=== PATIENT | female | born 1935 | race Caucasian/White ===

== ENCOUNTER 2017-06-08 12:16 | Outpatient (RCR) | payer MEDICARE, OTHER, SELFPAY ==
[2017-06-08 13:07] LABS: International Normalized Ratio 2.3; Prothrombin Time (Protime)PT. 24.7 SECONDS (11.7-14.9)
== END 2017-06-08 12:30 | disposition home or self-care (01) ==
LOC: LAB 12:16
PROVIDERS: Family Provider Family Medicine; PCP Family Medicine; Visit Provider Internal Medicine Cardiovascular Disease
DX: I48.0 Paroxysmal atrial fibrillation (principal)
CPT/HCPCS: 36415; 85610

== ENCOUNTER 2017-06-27 12:38 | Outpatient (RCR) | payer MEDICARE, OTHER, SELFPAY ==
[2017-05-03 14:04] VITALS: BP 140/70
[2017-06-27 13:58] LABS: International Normalized Ratio 2.4; Prothrombin Time (Protime)PT. 25.1 SECONDS (11.7-14.9)
== END 2017-06-27 13:49 ==
LOC: LAB 12:38
PROVIDERS: Family Provider Family Medicine; PCP Family Medicine; Visit Provider Internal Medicine Cardiovascular Disease
DX: I48.0 Paroxysmal atrial fibrillation (principal)
CPT/HCPCS: 36415; 85610

== ENCOUNTER 2017-07-30 13:50 | Emergency (ER) | payer MEDICARE, OTHER, SELFPAY ==
[2017-07-30 13:51] VITALS: BP 159/83; PULSE 89; RESP 17; TEMP 37.2; O2SAT 97; BMI 28.5
--- NOTE | 2017-07-30 14:03 | NURSING ---
NO LW OR POA
--- NOTE | 2017-07-30 14:05 | EKG12_ITS ---
Test Reason : COLD SX Blood Pressure : / mmHG Vent. Rate : 072 BPM Atrial Rate : 075 BPM P-R Int : 000 ms QRS Dur : 140 ms QT Int : 434 ms P-R-T Axes : 000 -59 108 degrees QTc Int : 475 ms Atrial fibrillation with V pacing Left axis deviation Left ventricular hypertrophy with QRS widening T wave abnormality, consider lateral ischemia Abnormal ECG Confirmed by STEW MONTEMAYOR, POORNIMA ([id number]), marketing editor YUDI LEE ([id number]) on 08/01/2017 3:05:30 PM Referred By: ADAL Confirmed By:POORNIMA MATHIAS MD
--- NOTE | 2017-07-30 14:06 | RAD_ITS ---
STUDY: X-RAY CHEST REASON FOR EXAM: Female, 82 years old. Cough and congestion TECHNIQUE: Single view of the chest was obtained COMPARISON: August 01, 2015 chest radiograph. FINDINGS: No lung consolidation, pleural effusion or pneumothorax. Mild enlargement of the hilar shadows noted. There are likely calcified granulomas in the left upper lobe however small nodule in the left upper lobe suspected which appears more conspicuous than previous examination. Please consider chest CT on a nonemergent basis. Cardiac size is slightly prominent. Pacemaker device is noted. Left lower lobe retrocardiac region ill-defined opacities also seen RAD/Chest 1 View (Portable) IMPRESSION: No lung consolidation or pneumothorax. Mild cardiomegaly. Ill-defined nodular density in the left upper lobe nodule visualized on the previous examination. Please consider chest CT on a nonemergent basis Electronically Signed: Walter Muse, at 14:25 EST Tel , Service support ,
[2017-07-30] MEDS: Ipratropium/Albuterol Sulfate 3 ML AMPUL.NEB INHALATION (14:18)
[2017-07-30 14:19] VITALS: PULSE 74; RESP 23
[2017-07-30 14:30] LABS: Absolute Lymphocyte Count 0.74 X10^3/ul (0.83-4.51); Basophil# 0.01 X10^3/uL; Basophil% 0.2 % (0-1); Eosinophil# 0.01 X10^3/uL; Eosinophils% 0.2 % (0-5); Hematocrit 39.7 % (37-47); Lymphocyte # 0.74 X10^3/ul (4.0); Lymphocyte % 13.8 % (19-41); Mean Corp Hgb Conc 32.7 g/gl (32-36); Mean Corpuscular Hgb 31.3 pg (27.0-32.0); Mean Corpuscular Volume 95.4 fL (81-99); Mean Platelet Vol. 10.5 fl (6.2-12.0); Monocyte# 0.63 X10^3/uL; Monocyte% 11.7 % (0-10); Neutrophil # 3.99 X10^3/uL (2.7-7.7); Neutrophil % 74.1 % (47-70); POSITIVE COUNT NO; POSITIVE DIFFERENTIAL NO; POSITIVE MORPHOLOGY NO; Platelet Count 106 K/mm3 (150-450); RBC Distribution Width CV 13.2 % (11.6-14.6); RBC Distribution Width SD 45.4 fl (35.1-43.9); Red Blood Count 4.16 M/mm3 (4.2-5.4); White Blood Count 5.4 K/mm3 (4.4-11.0)
--- NOTE | 2017-07-30 14:32 | ED.DCSUM_ITS ---
- ER Visit Summary Date of Service: 07/30/17 Chief Complaint: [] cold symptoms for about a week History of Present Illness: The patient is a 82 F [] reports that a chest cold for about a week she is otherwise very healthy, history of heart disease, cardiomyopathy history implantable defibrillator CAD, cardiac status is stable on Coumadin INR is been 3 no chest pain no fever but a harsh dry cough and runny nose she was seen in urgent care center went to her drugstore she seemed tired and fatigued paramedics were called and she was brought in she indicates she is just debilitated from the harsh coughing she has been able to eat and drink her bowel bladder habits been normal she can shake the cough she did have a flu vaccination she has no history of COPD DVT or PE Physical Examination: [] Total signs are within normal range her pulse ox is 97 % on room air she is afebrile her nose is quite congested she has a harsh cough her neck is supple her lungs rhonchi in all areas the heart tones are unremarkable the abdomen soft nontender upper lower extremities unremarkable neurologically is awake moving all 4 Test Results: [] Emergency Department Course and Treatment: [] Therapy screening labs flu swab Studies are generally unremarkable except her flu swab is positive for influenza B chest x-ray shows nothing acute except a nonspecific abnormality that was present before per radiology to recommend nonemergent CT for further delineation no change in that abnormality see that report Much better she is taking p.o. fluids she understands all the above she wants to go home, again she indicates her cardiac status has been stable her defibrillator did not fire she has had no chest pain or any cardiac symptomatology Be instructed to use Proventil inhaler Flonase, Mucinex, Tylenol No. 3 at bedtime and follow with her doctor and return for change in symptoms Treatment Plan: [] Disposition: [] Stable home Impression: [] URI with harsh cough, influenza B positive history of cardiomyopathy and cardiac defibrillator This note was generated with [employer] dictation software. It may contain incorrect words, spelling, and punctuation that were not noted in review of the chart prior to signing ED Disposition - Plan for ED Patient: Chief Complaint: Cold Sx Referrals: Olivier Singh MD [Primary Care Provider] -
[2017-07-30 14:43] LABS: Anion Gap 7 (5-15); BUN 25 mg/dL (7-18); BUN/Creat Ratio 21.9 RATIO (10-20); Calcium,Total 8.3 mg/dL (8.5-10.1); Chloride 104 mmol/L (98-107); Creatinine, Serum 1.14 mg/dL (0.55-1.02); EST Glomerular Filtration Rate 49 mL/min (>60); Est Glom Filt Rate - Afr Amer 59 mL/min (>60); Glucose 105 mg/dL (74-106); Potassium 4.1 mmol/L (3.5-5.1); Sodium Level 139 mmol/L (136-145)
[2017-07-30 15:00] LABS: International Normalized Ratio 2.2; Prothrombin Time (Protime)PT. 24.2 SECONDS (11.7-14.9)
--- NOTE | 2017-07-30 15:14 | ED.RN ---
LAB REPORTED POSITIVE FLU B
[2017-07-30 15:52] VITALS: BP 142/72; PULSE 76; RESP 24; O2SAT 94
--- NOTE | 2017-07-30 16:12 | ED.DEP ---
ED Disposition - Plan for ED Patient: Chief Complaint: Cold Sx Instructions: ED Flu Prescriptions: Albuterol Inhaler [Ventolin Hfa] 1 - 2 puff INHALATION Q4H PRN PRN #1 inhaler PRN Reason: Wheezing Acetaminophen/Codeine #3 [Tylenol #3 Tablet] 1 tab PO QHS #7 tab Fluticasone Propionate [Flonase Allergy Relief] 9.9 ml NS BID #1 spray.susp Guaifenesin [Mucinex] 1,200 mg PO BID #14 tbmp.12hr Referrals: Olivier Singh MD [Primary Care Provider] -
[2017-07-30 16:45] VITALS: BP 141/79; PULSE 77; RESP 22; O2SAT 95
== END 2017-07-30 16:46 | disposition home or self-care (01) ==
LOC: ED 14:26
PROVIDERS: Emergency Provider Emergency Medicine; Family Provider Family Medicine; PCP Family Medicine
DX: J11.1 Influenza due to unidentified influenza virus with other respiratory manifestations (principal); J06.9 Acute upper respiratory infection, unspecified; R05 Cough; I42.9 Cardiomyopathy, unspecified; I25.10 Atherosclerotic heart disease of native coronary artery without angina pectoris; I50.9 Heart failure, unspecified; I10 Essential (primary) hypertension; E78.00 Pure hypercholesterolemia, unspecified; I48.91 Unspecified atrial fibrillation; Z95.810 Presence of automatic (implantable) cardiac defibrillator; Z79.01 Long term (current) use of anticoagulants; Z79.899 Other long term (current) drug therapy
CPT/HCPCS: 71045; 80048; 83880; 84484; 85025; 85610; 87804; 93005; 94640; 99285; A4216

== ENCOUNTER 2017-08-12 11:20 | Outpatient (RCR) | payer MEDICARE, OTHER, SELFPAY ==
[2017-08-04 14:25] LABS: International Normalized Ratio 3.2
== END 2017-08-12 12:00 | disposition home or self-care (01) ==
LOC: LAB 11:20
PROVIDERS: Family Provider Family Medicine; PCP Family Medicine; Visit Provider Internal Medicine Cardiovascular Disease
DX: I48.0 Paroxysmal atrial fibrillation (principal)
CPT/HCPCS: 36415; 85610

== ENCOUNTER 2017-09-13 09:07 | Outpatient (RCR) | payer MEDICARE, OTHER, SELFPAY ==
[2017-09-02 12:42] LABS: International Normalized Ratio 3.2; Prothrombin Time (Protime)PT. 32.8 SECONDS (11.7-14.9)
[2017-09-13 09:44] LABS: International Normalized Ratio 2.7; Prothrombin Time (Protime)PT. 29.2 SECONDS (11.7-14.9)
== END 2017-09-13 10:00 | disposition home or self-care (01) ==
LOC: LAB 09:07
PROVIDERS: Family Provider Family Medicine; PCP Family Medicine; Visit Provider Internal Medicine Cardiovascular Disease
DX: I48.0 Paroxysmal atrial fibrillation (principal)
CPT/HCPCS: 36415; 85610

== ENCOUNTER → 2017-11-01 11:44 | Outpatient (CLI) | payer MEDICARE, OTHER, SELFPAY ==
[2017-11-01 12:31] LABS: International Normalized Ratio 2.1; Prothrombin Time (Protime)PT. 23.2 SECONDS (11.7-14.9)
[2017-11-01 13:15] LABS: AST(SGOT) 41 U/L (15-37); Alanine Aminotransfer ALT/SGPT 63 U/L (13-56); Albumin, Serum 3.4 g/dL (3.2-5.0); Alkaline Phosphatase 119 U/L (45-117); Bilirubin, Direct 0.16 mg/dL (0.00-0.30); Globulin 3.9 g/dL (2.2-4.2); Protein, Total 7.3 g/dL (6.4-8.2); T4 Free Direct 1.41 ng/dL (0.76-1.46); Thyroid Stim Hormone (TSH) 2.02 uIU/mL (0.358-3.74)
== END ==
PROVIDERS: Family Provider Family Medicine; PCP Family Medicine; Visit Provider Physician Assistant Medical
DX: I48.91 Unspecified atrial fibrillation (principal); Z79.899 Other long term (current) drug therapy
CPT/HCPCS: 36415; 80076; 84439; 84443; 85610

== ENCOUNTER 2017-11-22 11:08 | Outpatient (RCR) | payer MEDICARE, OTHER, SELFPAY ==
[2017-11-22 11:32] LABS: Prothrombin Time (Protime)PT. 22.4 SECONDS (11.7-14.9)
== END 2017-11-22 12:00 | disposition home or self-care (01) ==
LOC: LAB 11:08
PROVIDERS: Family Provider Family Medicine; PCP Family Medicine; Visit Provider Internal Medicine Cardiovascular Disease
DX: I48.0 Paroxysmal atrial fibrillation (principal); Z79.01 Long term (current) use of anticoagulants
CPT/HCPCS: 36415; 85610

== ENCOUNTER 2017-12-20 11:59 | Outpatient (RCR) | payer MEDICARE, OTHER, SELFPAY ==
[2017-12-20 13:14] LABS: Prothrombin Time (Protime)PT. 22.3 SECONDS (11.7-14.9)
== END 2017-12-20 13:00 | disposition home or self-care (01) ==
LOC: LAB 11:59
PROVIDERS: Family Provider Family Medicine; PCP Family Medicine; Visit Provider Internal Medicine Cardiovascular Disease
DX: I48.0 Paroxysmal atrial fibrillation (principal); Z79.01 Long term (current) use of anticoagulants
CPT/HCPCS: 36415; 85610

== ENCOUNTER 2018-01-18 11:54 | Outpatient (RCR) | payer MEDICARE, OTHER, SELFPAY ==
[2018-01-18 12:57] LABS: International Normalized Ratio 2.2; Prothrombin Time (Protime)PT. 24.7 SECONDS (11.7-14.9)
== END 2018-01-18 13:00 | disposition home or self-care (01) ==
LOC: LAB 11:54
PROVIDERS: Family Provider Family Medicine; PCP Family Medicine; Visit Provider Internal Medicine Cardiovascular Disease
DX: I48.0 Paroxysmal atrial fibrillation (principal); Z79.01 Long term (current) use of anticoagulants
CPT/HCPCS: 36415; 85610

== ENCOUNTER 2018-02-15 12:30 | Outpatient (RCR) | payer MEDICARE, OTHER, SELFPAY ==
[2018-02-15 12:54] LABS: International Normalized Ratio 2.2; Prothrombin Time (Protime)PT. 24.7 SECONDS (11.7-14.9)
== END 2018-02-15 14:00 | disposition home or self-care (01) ==
LOC: LAB 12:30
PROVIDERS: Family Provider Family Medicine; PCP Family Medicine; Visit Provider Internal Medicine Cardiovascular Disease
DX: I48.0 Paroxysmal atrial fibrillation (principal); Z79.01 Long term (current) use of anticoagulants
CPT/HCPCS: 36415; 85610

== ENCOUNTER 2018-03-14 10:55 | Outpatient (RCR) | payer MEDICARE, OTHER, SELFPAY ==
[2018-03-14 11:38] LABS: International Normalized Ratio 2.2; Prothrombin Time (Protime)PT. 24.8 SECONDS (11.7-14.9)
== END 2018-03-14 12:00 | disposition home or self-care (01) ==
LOC: LAB 10:55
PROVIDERS: Family Provider Family Medicine; PCP Family Medicine; Referring Provider Internal Medicine Cardiovascular Disease; Visit Provider Internal Medicine Cardiovascular Disease
DX: I48.0 Paroxysmal atrial fibrillation (principal); Z79.01 Long term (current) use of anticoagulants
CPT/HCPCS: 36415; 85610

== ENCOUNTER 2018-04-11 10:50 | Outpatient (RCR) | payer MEDICARE, OTHER, SELFPAY ==
[2018-04-11 11:30] LABS: International Normalized Ratio 1.7; Prothrombin Time (Protime)PT. 19.8 SECONDS (11.7-14.9)
== END 2018-04-24 10:52 | disposition home or self-care (01) ==
LOC: LAB 10:50
PROVIDERS: Family Provider Family Medicine; PCP Family Medicine; Referring Provider Internal Medicine Cardiovascular Disease; Visit Provider Internal Medicine Cardiovascular Disease
DX: I48.0 Paroxysmal atrial fibrillation (principal); Z79.01 Long term (current) use of anticoagulants
CPT/HCPCS: 36415; 85610

== ENCOUNTER 2018-06-08 13:28 | Outpatient (RCR) | payer MEDICARE, OTHER, SELFPAY ==
[2018-05-26 11:17] LABS: International Normalized Ratio 1.7
[2018-06-08 14:48] LABS: International Normalized Ratio 2.3; Prothrombin Time (Protime)PT. 25.1 SECONDS (11.7-14.9)
== END 2018-06-08 14:00 | disposition home or self-care (01) ==
LOC: LAB 13:28
PROVIDERS: Family Provider Family Medicine; PCP Family Medicine; Referring Provider Internal Medicine Cardiovascular Disease; Visit Provider Internal Medicine Cardiovascular Disease
DX: I48.0 Paroxysmal atrial fibrillation (principal); Z79.01 Long term (current) use of anticoagulants
CPT/HCPCS: 36415; 85610

== ENCOUNTER 2018-07-17 10:24 | Outpatient (RCR) | payer MEDICARE, OTHER, SELFPAY ==
[2018-07-06 16:48] LABS: International Normalized Ratio 1.6; Prothrombin Time (Protime)PT. 19.1 SECONDS (11.7-14.9)
[2018-07-17 10:53] LABS: International Normalized Ratio 2.1; Prothrombin Time (Protime)PT. 23.6 SECONDS (11.7-14.9)
== END 2018-07-20 14:33 | disposition home or self-care (01) ==
LOC: LAB 10:24
PROVIDERS: Family Provider Family Medicine; PCP Family Medicine; Referring Provider Internal Medicine Cardiovascular Disease; Visit Provider Internal Medicine Cardiovascular Disease
DX: I48.0 Paroxysmal atrial fibrillation (principal); Z79.01 Long term (current) use of anticoagulants
CPT/HCPCS: 36415; 85610

== ENCOUNTER 2018-08-14 12:22 | Outpatient (RCR) | payer MEDICARE, OTHER, SELFPAY ==
[2018-08-08 11:05] VITALS: BMI 28.0
[2018-08-14 12:58] LABS: International Normalized Ratio 2.1; Prothrombin Time (Protime)PT. 23.8 SECONDS (11.7-14.9)
== END 2018-08-14 13:22 | disposition home or self-care (01) ==
LOC: LAB 12:22
PROVIDERS: Family Provider Family Medicine; PCP Family Medicine; Referring Provider Internal Medicine Cardiovascular Disease; Visit Provider Internal Medicine Cardiovascular Disease
DX: I48.0 Paroxysmal atrial fibrillation (principal); Z79.01 Long term (current) use of anticoagulants
CPT/HCPCS: 36415; 85610

== ENCOUNTER → 2018-08-31 | Outpatient (CLI) | payer MEDICARE, OTHER, SELFPAY ==
[2018-08-08 11:05] VITALS: BMI 28.0
--- NOTE | 2018-08-31 10:36 | ECHOCS_ITS ---
Reason For Study: ATRIAL FIB-FLUTTER Procedure This was a 2D Doppler, Color Flow transthoracic echocardiogram. Exam performed in department. Left Ventricle Severely dilated left ventricle. Moderate concentric left ventricular hypertrophy. The estimated ejection fraction is 15 %. Severe segmental systolic dysfunction (see wall motion). Stage 2 diastolic dysfunction. Septal [place] : Dyskinetic. Anterior [place] : Akinetic. Posterior-Basal: Normal. Lateral-Basal: Normal. The rest of the wall segments are hypokinetic. Right Ventricle Normal RV size. ICD or pacer leads identified within the right ventricle. Normal systolic function. Atria The left atrium is mildly enlarged. Normal right atrium. Mitral Valve Bileaflet diffuse mitral valve thickening. Mild-Moderate (1-2+) eccentric mitral valve insufficiency. Tricuspid Valve Normal tricuspid valve. Mild to moderate (1-2+) tricuspid valve insufficiency. Pulmonary artery systolic pressure is 44 mmHg. Mild pulmonary hypertension. Aortic Valve Trisinus/trileaflet aortic valve. Mild (1+) aortic valve insufficiency. Pulmonic Valve Normal pulmonic valve. Great Vessels Normal aortic root. The pulmonary artery is normal size. Normal inferior vena cava. Pericardium/Pleural Small pericardial effusion. Medication 22 gauge I.V. with prn adaptor inserted into right arm. Diluted definity 4.5ml given slow IV push to enhance endocardial definition. MMode/2D Measurements & Calculations LVIDd: 7.5 cm IVSd: 1.5 cm Ao root diam: 3.4 cm LVIDs: 6.4 cm LVPWd: 1.5 cm RVDd: 3.4 cm FS: 15.5 % LAV(MOD-bp): 70.5 ml LVAd ap4: 66.2 cm2 SV(MOD-sp4): 78.6 ml LAV(MOD-bp) Indexed: 36.9 ml/m2 EDV(MOD-sp4): 339.1 ml LAV(MOD-sp2): 75.6 ml EDV(sp4-el): 360.9 ml LAV(MOD-sp4): 61.4 ml LVAs ap4: 57.2 cm2 ESV(MOD-sp4): 260.5 ml ESV(sp4-el): 271.9 ml EF(MOD-sp4): 23.2 % EF(sp4-el): 24.7 % SV(sp4-el): 89.1 ml LA A4 area: 21.0 cm2 LA dimension(2D): 4.5 cm RA A4 area: 13.8 cm2 Time Measurements MV dec time: 0.16 sec Doppler Measurements & Calculations MV E max micah: 71.6 cm/sec Lat Peak E' Micah: 3.2 cm/sec Med Peak E' Micah: 2.7 cm/sec MV A max micah: 94.6 cm/sec E/E' lat: 22.2 E/E' med: 27.0 MV E/A: 0.76 Ao V2 max: 147.8 cm/sec AI max micah: 392.4 cm/sec LV V1 max: 125.8 cm/sec Ao max P.7 mmHg AI max P.7 mmHg LV V1 max P.3 mmHg AI dec slope: 276.0 cm/sec2 AI P1/2t: 416.4 msec PA V2 max: 76.2 cm/sec PI end-d micah: 100.4 cm/sec TR max micah: 318.4 cm/sec TR max P.6 mmHg Interpretation Summary Severely dilated left ventricle. The estimated ejection fraction is 15 %. Severe segmental systolic dysfunction (see wall motion). Mild-Moderate (1-2+) eccentric mitral valve insufficiency. Pulmonary artery systolic pressure is 44 mmHg. Mild pulmonary hypertension. Stage 2 diastolic dysfunction. Contrast injection was performed. Ordering Physician: Ramírez Emerson Referring Physician: CITLALI SHABAZZ Performed By: Darby Myers RDCS
== END | disposition home or self-care (01) ==
LOC: CVS 10:35
PROVIDERS: Family Provider Family Medicine; PCP Family Medicine; Referring Provider Internal Medicine Cardiovascular Disease; Visit Provider Internal Medicine Cardiovascular Disease
DX: I25.10 Atherosclerotic heart disease of native coronary artery without angina pectoris (principal)
CPT/HCPCS: 93306; Q9957; A4216; C8929

== ENCOUNTER 2018-09-11 11:50 | Outpatient (RCR) | payer MEDICARE, OTHER, SELFPAY ==
[2018-08-08 11:05] VITALS: BMI 28.0
[2018-09-11 12:49] LABS: International Normalized Ratio 1.9; Prothrombin Time (Protime)PT. 21.5 SECONDS (11.7-14.9)
== END 2018-09-19 16:00 | disposition home or self-care (01) ==
LOC: LAB 11:50
PROVIDERS: Family Provider Family Medicine; PCP Family Medicine; Referring Provider Internal Medicine Cardiovascular Disease; Visit Provider Internal Medicine Cardiovascular Disease
DX: I48.0 Paroxysmal atrial fibrillation (principal); Z79.01 Long term (current) use of anticoagulants
CPT/HCPCS: 36415; 85610

== ENCOUNTER 2018-10-17 10:57 | Outpatient (RCR) | payer MEDICARE, OTHER, SELFPAY ==
[2018-08-08 11:05] VITALS: BMI 28.0
[2018-09-25 13:46] LABS: International Normalized Ratio 1.7; Prothrombin Time (Protime)PT. 19.8 SECONDS (11.7-14.9)
[2018-10-02 15:20] LABS: Prothrombin Time (Protime)PT. 22.2 SECONDS (11.7-14.9)
[2018-10-17 11:55] LABS: International Normalized Ratio 2.1; Prothrombin Time (Protime)PT. 23.8 SECONDS (11.7-14.9)
== END 2018-10-17 11:57 | disposition home or self-care (01) ==
LOC: LAB 10:57
PROVIDERS: Family Provider Family Medicine; PCP Family Medicine; Referring Provider Internal Medicine Cardiovascular Disease; Visit Provider Internal Medicine Cardiovascular Disease
DX: I48.0 Paroxysmal atrial fibrillation (principal); Z79.01 Long term (current) use of anticoagulants
CPT/HCPCS: 36415; 85610

== ENCOUNTER 2018-11-07 12:09 | Outpatient (RCR) | payer MEDICARE, OTHER, SELFPAY ==
[2018-08-08 11:05] VITALS: BMI 28.0
[2018-11-07 13:47] LABS: Prothrombin Time (Protime)PT. 26.4 SECONDS (11.7-14.9)
[2018-11-07 13:48] LABS: International Normalized Ratio 2.4
== END 2018-11-07 13:00 | disposition home or self-care (01) ==
LOC: LAB 12:09
PROVIDERS: Family Provider Family Medicine; PCP Family Medicine; Referring Provider Internal Medicine Cardiovascular Disease; Visit Provider Internal Medicine Cardiovascular Disease
DX: I48.0 Paroxysmal atrial fibrillation (principal); Z79.01 Long term (current) use of anticoagulants
CPT/HCPCS: 36415; 85610

== ENCOUNTER 2018-12-04 13:58 | Outpatient (RCR) | payer MEDICARE, OTHER, SELFPAY ==
[2018-08-08 11:05] VITALS: BMI 28.0
[2018-12-04 14:37] LABS: International Normalized Ratio 2.2; Prothrombin Time (Protime)PT. 24.8 SECONDS (11.7-14.9)
== END 2018-12-20 15:59 | disposition home or self-care (01) ==
LOC: LAB 13:58
PROVIDERS: Family Provider Family Medicine; PCP Family Medicine; Referring Provider Internal Medicine Cardiovascular Disease; Visit Provider Internal Medicine Cardiovascular Disease
DX: I48.0 Paroxysmal atrial fibrillation (principal); Z79.01 Long term (current) use of anticoagulants
CPT/HCPCS: 36415; 85610

== ENCOUNTER 2019-01-01 11:10 | Outpatient (RCR) | payer MEDICARE, OTHER, SELFPAY ==
[2018-08-08 11:05] VITALS: BMI 28.0
[2019-01-01 12:30] LABS: International Normalized Ratio 2.9; Prothrombin Time (Protime)PT. 30.6 SECONDS (11.7-14.9)
== END 2019-01-01 18:00 | disposition home or self-care (01) ==
LOC: LAB 11:10
PROVIDERS: Family Provider Family Medicine; PCP Family Medicine; Referring Provider Internal Medicine Cardiovascular Disease; Visit Provider Internal Medicine Cardiovascular Disease
DX: I48.0 Paroxysmal atrial fibrillation (principal); Z79.01 Long term (current) use of anticoagulants
CPT/HCPCS: 36415; 85610

== ENCOUNTER 2019-01-31 10:52 | Outpatient (RCR) | payer MEDICARE, OTHER, SELFPAY ==
[2018-08-08 11:05] VITALS: BMI 28.0
[2019-01-31 11:57] LABS: International Normalized Ratio 2.2; Prothrombin Time (Protime)PT. 24.2 SECONDS (11.7-14.9)
== END 2019-01-31 12:00 | disposition home or self-care (01) ==
LOC: LAB 10:52
PROVIDERS: Family Provider Family Medicine; PCP Family Medicine; Referring Provider Internal Medicine Cardiovascular Disease; Visit Provider Internal Medicine Cardiovascular Disease
DX: I48.0 Paroxysmal atrial fibrillation (principal); Z79.01 Long term (current) use of anticoagulants
CPT/HCPCS: 36415; 85610

== ENCOUNTER 2019-03-01 11:55 | Outpatient (RCR) | payer MEDICARE, OTHER, SELFPAY ==
[2018-08-08 11:05] VITALS: BMI 28.0
[2019-03-01 13:25] LABS: International Normalized Ratio 2.3
== END 2019-03-01 18:00 | disposition home or self-care (01) ==
LOC: LAB 11:55
PROVIDERS: Family Provider Family Medicine; PCP Family Medicine; Referring Provider Internal Medicine Cardiovascular Disease; Visit Provider Internal Medicine Cardiovascular Disease
DX: I48.0 Paroxysmal atrial fibrillation (principal); Z79.01 Long term (current) use of anticoagulants
CPT/HCPCS: 36415; 85610

== ENCOUNTER 2019-03-28 09:10 | Outpatient (RCR) | payer MEDICARE, OTHER, SELFPAY ==
[2018-08-08 11:05] VITALS: BMI 28.0
[2019-03-28 09:53] LABS: Prothrombin Time (Protime)PT. 31.4 SECONDS (11.7-14.9)
== END 2019-03-28 18:00 | disposition home or self-care (01) ==
LOC: LAB 09:10
PROVIDERS: Family Provider Family Medicine; PCP Family Medicine; Referring Provider Internal Medicine Cardiovascular Disease; Visit Provider Internal Medicine Cardiovascular Disease
DX: I48.0 Paroxysmal atrial fibrillation (principal); Z79.01 Long term (current) use of anticoagulants
CPT/HCPCS: 36415; 85610

== ENCOUNTER → 2019-04-24 10:43 | Outpatient (CLI) | payer MEDICARE, OTHER, SELFPAY ==
[2019-04-24 08:41] VITALS: BMI 28.1
--- NOTE | 2019-04-24 10:47 | RAD_ITS ---
STUDY: X-RAY CHEST REASON FOR EXAM: Female, 83 years old. Myocardial infarction. TECHNIQUE: Frontal and lateral views of the chest. COMPARISON: 07/30/2017. FINDINGS: The lungs are clear and expanded. There is no demonstrated pleural abnormality. Normal size heart. Pacemaker is seen with leads terminating in the right atrium and right ventricle. Normal mediastinum and marin. Normal visualized pulmonary arteries. Normal visualized aortic arch and descending thoracic aorta. Normal visualized thoracic spine. Normal visualized ribs, clavicles, and shoulders. There is no demonstrated abnormality of the visualized soft tissue structures of the upper abdomen. RAD/Chest PA and Lateral IMPRESSION: No acute chest disease. Electronically Signed: Ryne López MD at 20:11 EST , Service support ,
== END ==
PROVIDERS: Family Provider Family Medicine; PCP Family Medicine; Referring Provider Internal Medicine Cardiovascular Disease; Visit Provider Internal Medicine Cardiovascular Disease
DX: I48.0 Paroxysmal atrial fibrillation (principal)
CPT/HCPCS: 71046

== ENCOUNTER 2019-05-09 14:31 | Outpatient (RCR) | payer MEDICARE, OTHER, SELFPAY ==
[2018-08-08 11:05] VITALS: BMI 28.0
[2019-04-24 08:41] VITALS: BMI 28.1
[2019-04-24 12:19] LABS: International Normalized Ratio 3.2; Prothrombin Time (Protime)PT. 33.3 SECONDS (11.7-14.9)
[2019-04-24 13:04] LABS: AST(SGOT) 26 U/L (15-37); Alanine Aminotransfer ALT/SGPT 39 U/L (13-56); Albumin, Serum 3.3 g/dL (3.2-5.0); Alkaline Phosphatase 109 U/L (45-117); Bilirubin, Direct 0.14 mg/dL (0.00-0.30); Globulin 3.7 g/dL (2.2-4.2); T4 Free Direct 1.12 ng/dL (0.76-1.46); Thyroid Stim Hormone (TSH) 2.23 uIU/mL (0.358-3.74)
[2019-05-09 15:41] LABS: International Normalized Ratio 2.8; Prothrombin Time (Protime)PT. 29.3 SECONDS (11.7-14.9)
== END 2019-05-09 18:00 | disposition home or self-care (01) ==
LOC: LAB 14:31
PROVIDERS: Family Provider Family Medicine; PCP Family Medicine; Referring Provider Internal Medicine Cardiovascular Disease; Visit Provider Internal Medicine Cardiovascular Disease
DX: E78.00 Pure hypercholesterolemia, unspecified (principal); I48.0 Paroxysmal atrial fibrillation; Z79.01 Long term (current) use of anticoagulants
CPT/HCPCS: 36415; 71046; 80076; 84439; 84443; 85610

== ENCOUNTER 2019-06-06 10:50 | Outpatient (RCR) | payer MEDICARE, OTHER, SELFPAY ==
[2019-04-24 08:41] VITALS: BMI 28.1
[2019-06-06 11:47] LABS: International Normalized Ratio 2.2; Prothrombin Time (Protime)PT. 24.3 SECONDS (11.7-14.9)
== END 2019-06-06 18:00 | disposition home or self-care (01) ==
LOC: LAB 10:50
PROVIDERS: Family Provider Family Medicine; PCP Family Medicine; Referring Provider Internal Medicine Cardiovascular Disease; Visit Provider Internal Medicine Cardiovascular Disease
DX: I48.0 Paroxysmal atrial fibrillation (principal); Z79.01 Long term (current) use of anticoagulants
CPT/HCPCS: 36415; 85610

== ENCOUNTER 2019-06-28 13:10 | Outpatient (RCR) | payer MEDICARE, OTHER, SELFPAY ==
[2019-04-24 08:41] VITALS: BMI 28.1
[2019-06-28 14:17] LABS: International Normalized Ratio 2.4; Prothrombin Time (Protime)PT. 26.5 SECONDS (11.7-14.9)
== END 2019-06-28 18:00 | disposition home or self-care (01) ==
LOC: LAB 13:10
PROVIDERS: Family Provider Family Medicine; PCP Family Medicine; Referring Provider Internal Medicine Cardiovascular Disease; Visit Provider Internal Medicine Cardiovascular Disease
DX: I48.0 Paroxysmal atrial fibrillation (principal); Z79.01 Long term (current) use of anticoagulants
CPT/HCPCS: 36415; 85610

== ENCOUNTER 2019-08-16 13:24 | Outpatient (RCR) | payer MEDICARE, OTHER, SELFPAY ==
[2019-04-24 08:41] VITALS: BMI 28.1
[2019-07-27 14:34] LABS: International Normalized Ratio 2.5; Prothrombin Time (Protime)PT. 27.1 SECONDS (11.7-14.9)
[2019-08-01 14:21] LABS: Prothrombin Time (Protime)PT. 36.4 SECONDS (11.7-14.9)
[2019-08-01 14:25] LABS: International Normalized Ratio 3.6
[2019-08-09 14:34] LABS: International Normalized Ratio 2.4; Prothrombin Time (Protime)PT. 26.1 SECONDS (11.7-14.9)
[2019-08-16 14:36] LABS: International Normalized Ratio 3.2
== END 2019-08-16 18:00 | disposition home or self-care (01) ==
LOC: LAB 13:24
PROVIDERS: Family Provider Family Medicine; PCP Family Medicine; Referring Provider Internal Medicine Cardiovascular Disease; Visit Provider Internal Medicine Cardiovascular Disease
DX: I48.0 Paroxysmal atrial fibrillation (principal); Z79.01 Long term (current) use of anticoagulants
CPT/HCPCS: 36415; 85610

== ENCOUNTER 2019-09-19 11:53 | Outpatient (RCR) | payer MEDICARE, OTHER, SELFPAY ==
[2019-04-24 08:41] VITALS: BMI 28.1
[2019-08-29 12:14] LABS: International Normalized Ratio 2.9; Prothrombin Time (Protime)PT. 30.2 SECONDS (11.7-14.9)
[2019-09-19 13:13] LABS: International Normalized Ratio 2.9; Prothrombin Time (Protime)PT. 29.8 SECONDS (11.7-14.9)
== END 2019-09-20 18:00 | disposition home or self-care (01) ==
LOC: LAB 11:53
PROVIDERS: Family Provider Family Medicine; PCP Family Medicine; Referring Provider Internal Medicine Cardiovascular Disease; Visit Provider Internal Medicine Cardiovascular Disease
DX: I48.0 Paroxysmal atrial fibrillation (principal); Z79.01 Long term (current) use of anticoagulants
CPT/HCPCS: 36415; 85610

== ENCOUNTER 2019-10-17 10:18 | Outpatient (RCR) | payer MEDICARE, OTHER, SELFPAY ==
[2019-04-24 08:41] VITALS: BMI 28.1
[2019-10-17 16:16] LABS: International Normalized Ratio 2.3; Prothrombin Time (Protime)PT. 25.1 SECONDS (11.7-14.9)
== END 2019-10-17 18:00 | disposition home or self-care (01) ==
LOC: LAB 10:18
PROVIDERS: Family Provider Family Medicine; PCP Family Medicine; Referring Provider Internal Medicine Cardiovascular Disease; Visit Provider Internal Medicine Cardiovascular Disease
DX: I48.0 Paroxysmal atrial fibrillation (principal); Z79.01 Long term (current) use of anticoagulants
CPT/HCPCS: 36415; 85610

== ENCOUNTER → 2019-10-24 | Outpatient (CLI) | payer MEDICARE, OTHER, SELFPAY ==
[2019-04-24 08:41] VITALS: BMI 28.1
[2019-10-24 11:26] LABS: AST(SGOT) 27 U/L (15-37); Alanine Aminotransfer ALT/SGPT 43 U/L (13-56); Albumin, Serum 3.3 g/dL (3.2-5.0); Alkaline Phosphatase 109 U/L (45-117); Bilirubin, Direct 0.16 mg/dL (0.00-0.30); Cholesterol 159 mg/dL (200); Globulin 4.2 g/dL (2.2-4.2); High Density Lipoprotein 48 mg/dL; Protein, Total 7.5 g/dL (6.4-8.2); Thyroid Stim Hormone (TSH) 2.37 uIU/mL (0.358-3.74); Triglycerides 97 mg/dL; Very Low Density Lipoprotein 19 mg/dL (5-40)
== END | disposition home or self-care (01) ==
LOC: LAB 09:08
PROVIDERS: PCP Family Medicine; Referring Provider Internal Medicine Cardiovascular Disease; Visit Provider Internal Medicine Cardiovascular Disease
DX: E78.00 Pure hypercholesterolemia, unspecified (principal); I48.0 Paroxysmal atrial fibrillation
CPT/HCPCS: 36415; 80061; 80076; 84443

== ENCOUNTER 2019-11-15 12:31 | Outpatient (RCR) | payer MEDICARE, OTHER, SELFPAY ==
[2019-04-24 08:41] VITALS: BMI 28.1
[2019-11-15 13:42] LABS: International Normalized Ratio 1.8; Prothrombin Time (Protime)PT. 20.2 SECONDS (11.7-14.9)
== END 2019-11-15 18:00 | disposition home or self-care (01) ==
LOC: LAB 12:31
PROVIDERS: Family Provider Family Medicine; PCP Family Medicine; Referring Provider Internal Medicine Cardiovascular Disease; Visit Provider Internal Medicine Cardiovascular Disease
DX: I48.0 Paroxysmal atrial fibrillation (principal); Z79.01 Long term (current) use of anticoagulants
CPT/HCPCS: 36415; 85610

== ENCOUNTER 2019-11-29 12:15 | Outpatient (RCR) | payer MEDICARE, OTHER, SELFPAY ==
[2019-04-24 08:41] VITALS: BMI 28.1
[2019-11-29 13:13] LABS: International Normalized Ratio 2.1; Prothrombin Time (Protime)PT. 22.6 SECONDS (11.7-14.9)
== END 2019-11-29 18:00 | disposition home or self-care (01) ==
LOC: LAB 12:15
PROVIDERS: Family Provider Family Medicine; PCP Family Medicine; Referring Provider Internal Medicine Cardiovascular Disease; Visit Provider Internal Medicine Cardiovascular Disease
DX: I48.0 Paroxysmal atrial fibrillation (principal); Z79.01 Long term (current) use of anticoagulants
CPT/HCPCS: 36415; 85610

== ENCOUNTER 2020-01-03 10:17 | Outpatient (RCR) | payer MEDICARE, OTHER, SELFPAY ==
[2019-11-29 12:50] VITALS: BMI 28.1
[2020-01-03 11:23] LABS: International Normalized Ratio 2.9; Prothrombin Time (Protime)PT. 30.1 SECONDS (11.7-14.9)
== END 2020-01-21 18:00 | disposition home or self-care (01) ==
LOC: LAB 10:17
PROVIDERS: Family Provider Family Medicine; PCP Family Medicine; Referring Provider Internal Medicine Cardiovascular Disease; Visit Provider Internal Medicine Cardiovascular Disease
DX: I48.0 Paroxysmal atrial fibrillation (principal); Z79.01 Long term (current) use of anticoagulants
CPT/HCPCS: 36415; 85610

== ENCOUNTER 2020-01-31 11:25 | Outpatient (RCR) | payer MEDICARE, OTHER, SELFPAY ==
[2019-11-29 12:50] VITALS: BMI 28.1
[2020-01-31 12:52] LABS: Prothrombin Time (Protime)PT. 30.6 SECONDS (11.7-14.9)
== END 2020-01-31 18:00 | disposition home or self-care (01) ==
LOC: LAB 11:25
PROVIDERS: Family Provider Family Medicine; PCP Family Medicine; Referring Provider Internal Medicine Cardiovascular Disease; Visit Provider Internal Medicine Cardiovascular Disease
DX: I48.0 Paroxysmal atrial fibrillation (principal); Z79.01 Long term (current) use of anticoagulants
CPT/HCPCS: 36415; 85610

== ENCOUNTER 2020-02-29 11:52 | Outpatient (RCR) | payer MEDICARE, OTHER, SELFPAY ==
[2019-11-29 12:50] VITALS: BMI 28.1
[2020-02-29 12:26] LABS: International Normalized Ratio 2.9; Prothrombin Time (Protime)PT. 30.3 SECONDS (11.7-14.9)
== END 2020-02-29 18:00 | disposition home or self-care (01) ==
LOC: LAB 11:52
PROVIDERS: Family Provider Family Medicine; PCP Family Medicine; Referring Provider Internal Medicine Cardiovascular Disease; Visit Provider Internal Medicine Cardiovascular Disease
DX: I48.0 Paroxysmal atrial fibrillation (principal); Z79.01 Long term (current) use of anticoagulants
CPT/HCPCS: 36415; 85610

== ENCOUNTER 2020-04-24 09:16 | Outpatient (RCR) | payer MEDICARE, OTHER, SELFPAY ==
[2019-11-29 12:50] VITALS: BMI 28.1
[2020-04-24 10:39] LABS: International Normalized Ratio 2.9; Prothrombin Time (Protime)PT. 29.8 SECONDS (11.7-14.9)
[2020-04-24 11:01] LABS: AST(SGOT) 29 U/L (15-37); Alanine Aminotransfer ALT/SGPT 47 U/L (13-56); Albumin, Serum 3.4 g/dL (3.2-5.0); Alkaline Phosphatase 112 U/L (45-117); Bilirubin, Direct 0.17 mg/dL (0.00-0.30); Cholesterol 127 mg/dL (200); Globulin 3.7 g/dL (2.2-4.2); High Density Lipoprotein 51 mg/dL; Protein, Total 7.1 g/dL (6.4-8.2); Triglycerides 69 mg/dL; Very Low Density Lipoprotein 14 mg/dL (5-40)
== END 2020-04-24 18:00 | disposition home or self-care (01) ==
LOC: LAB 09:16
PROVIDERS: Family Provider Family Medicine; PCP Family Medicine; Referring Provider Internal Medicine Cardiovascular Disease; Visit Provider Internal Medicine Cardiovascular Disease
DX: I48.0 Paroxysmal atrial fibrillation (principal); Z79.01 Long term (current) use of anticoagulants; E78.00 Pure hypercholesterolemia, unspecified
CPT/HCPCS: 36415; 80061; 80076; 85610

== ENCOUNTER 2020-05-26 12:39 | Outpatient (RCR) | payer MEDICARE, OTHER, SELFPAY ==
[2019-11-29 12:50] VITALS: BMI 28.1
[2020-05-26 13:34] LABS: International Normalized Ratio 2.3; Prothrombin Time (Protime)PT. 25.1 SECONDS (11.7-14.9)
== END 2020-05-26 18:00 | disposition home or self-care (01) ==
LOC: LAB 12:39
PROVIDERS: Family Provider Family Medicine; PCP Family Medicine; Referring Provider Internal Medicine Cardiovascular Disease; Visit Provider Internal Medicine Cardiovascular Disease
DX: I48.0 Paroxysmal atrial fibrillation (principal); Z79.01 Long term (current) use of anticoagulants
CPT/HCPCS: 36415; 85610

== ENCOUNTER 2020-06-26 11:44 | Outpatient (RCR) | payer MEDICARE, OTHER, SELFPAY ==
[2019-11-29 12:50] VITALS: BMI 28.1
[2020-06-26 13:38] LABS: International Normalized Ratio 2.4; Prothrombin Time (Protime)PT. 25.5 SECONDS (11.7-14.9)
== END 2020-06-26 18:00 | disposition home or self-care (01) ==
LOC: LAB 11:44
PROVIDERS: Family Provider Family Medicine; PCP Family Medicine; Referring Provider Internal Medicine Cardiovascular Disease; Visit Provider Internal Medicine Cardiovascular Disease
DX: I48.0 Paroxysmal atrial fibrillation (principal); Z79.01 Long term (current) use of anticoagulants
CPT/HCPCS: 36415; 85610

== ENCOUNTER 2020-07-30 11:23 | Outpatient (RCR) | payer MEDICARE, OTHER, SELFPAY ==
[2019-11-29 12:50] VITALS: BMI 28.1
[2020-07-23 10:59] LABS: International Normalized Ratio 2.6; Prothrombin Time (Protime)PT. 27.6 SECONDS (11.7-14.9)
[2020-07-30 12:09] LABS: International Normalized Ratio 2.5; Prothrombin Time (Protime)PT. 26.3 SECONDS (11.7-14.9)
== END 2020-07-30 18:00 | disposition home or self-care (01) ==
LOC: LAB 11:23
PROVIDERS: Family Provider Family Medicine; PCP Family Medicine; Referring Provider Internal Medicine Cardiovascular Disease; Visit Provider Internal Medicine Cardiovascular Disease
DX: Z79.01 Long term (current) use of anticoagulants (principal); I48.0 Paroxysmal atrial fibrillation
CPT/HCPCS: 36415; 85610

== ENCOUNTER → 2020-08-13 10:59 | Outpatient (CLI) | payer MEDICARE, OTHER, SELFPAY ==
[2020-08-01 09:50] VITALS: BMI 28.0
--- NOTE | 2020-08-13 11:00 | ECHOD_ITS ---
Reason For Study: CAD Procedure This was a 2D Doppler, Color Flow transthoracic echocardiogram. Exam performed in department. Left Ventricle Severely dilated left ventricle. Mid cavitary false tendon noted. The estimated ejection fraction is 15 %. There are regional wall motion abnormalities as specified. Apical wall motion abnormality may reflect pacemaker activation. [place] : Aneurysmal. Mid-Anterior : Akinetic. Anterio-Basal: Hypokinetic. Lateral-Basal: Normal. Posterior-Basal: Normal. Infero-Basal: Hypokinetic. Basal inferoseptal: Hypokinetic. Mid-Inferior: Akinetic. Mid-Lateral : Hypokinetic. Right Ventricle Normal RV size. ICD or pacer leads identified within the right ventricle. Normal systolic function. Atria The left atrium is mildly enlarged. Normal right atrium. Mitral Valve Normal mitral valve. Moderate (2+) mitral valve insufficiency. Tricuspid Valve Normal tricuspid valve. Mild to moderate (1-2+) tricuspid valve insufficiency. Pulmonary artery systolic pressure is 54 mmHg. Moderate pulmonary hypertension. Aortic Valve Trisinus/trileaflet aortic valve. Mild (1+) aortic valve insufficiency. Pulmonic Valve Normal pulmonic valve. Great Vessels Normal aortic root. The pulmonary artery is normal size. Normal inferior vena cava. Pericardium/Pleural No pericardial effusion. MMode/2D Measurements & Calculations LVIDd: 7.0 cm IVSd: 1.0 cm Ao root diam: 2.9 cm LVIDs: 5.3 cm LVPWd: 1.0 cm RVDd: 2.8 cm FS: 24.4 % LAV(MOD-bp): 60.9 ml LA A4 area: 21.8 cm2 LA dimension(2D): 4.7 cm LAV(MOD-bp) Indexed: 31.6 ml/m2 LAV(MOD-sp2): 50.9 ml LAV(MOD-sp4): 69.3 ml RA A4 area: 12.4 cm2 Time Measurements MV dec time: 0.14 sec Doppler Measurements & Calculations MV E max micah: 74.7 cm/sec Lat Peak E' Micah: 6.1 cm/sec Med Peak E' Micah: 3.0 cm/sec MV A max micah: 94.5 cm/sec E/E' lat: 12.3 E/E' med: 25.2 MV E/A: 0.79 Ao V2 max: 127.0 cm/sec AI max micah: 386.7 cm/sec LV V1 max: 80.4 cm/sec Ao max P.5 mmHg AI max P.0 mmHg LV V1 max P.6 mmHg AI dec slope: 269.1 cm/sec2 AI P1/2t: 420.9 msec PA V2 max: 94.7 cm/sec PI end-d micah: 110.2 cm/sec TR max micah: 348.2 cm/sec TR max P.5 mmHg Interpretation Summary Severely dilated left ventricle. The estimated ejection fraction is 15 %. Normal RV size. Pulmonary artery systolic pressure is 54 mmHg. Moderate pulmonary hypertension. The global longitudinal strain is severely abnormal. The global longitudinal strain = -4.0% (abnormal). Compared to previous study, the left ventricular systolic function is the same.. Ordering Physician: Ramírez Emerson Referring Physician: CITLALI SHABAZZ Performed By: Anabella Zamarripa RDCS, RVT
== END ==
PROVIDERS: PCP Family Medicine; Referring Provider Internal Medicine Cardiovascular Disease; Visit Provider Internal Medicine Cardiovascular Disease
DX: I25.10 Atherosclerotic heart disease of native coronary artery without angina pectoris (principal)
CPT/HCPCS: 93306

== ENCOUNTER 2020-09-02 11:26 | Outpatient (RCR) | payer MEDICARE, OTHER, SELFPAY ==
[2020-08-01 09:50] VITALS: BMI 28.0
[2020-09-02 13:17] LABS: International Normalized Ratio 2.3; Prothrombin Time (Protime)PT. 24.1 SECONDS (11.7-14.9)
== END 2020-09-02 18:00 | disposition home or self-care (01) ==
LOC: LAB 11:26
PROVIDERS: Family Provider Family Medicine; PCP Family Medicine; Referring Provider Internal Medicine Cardiovascular Disease; Visit Provider Internal Medicine Cardiovascular Disease
DX: I48.0 Paroxysmal atrial fibrillation (principal); Z79.01 Long term (current) use of anticoagulants
CPT/HCPCS: 36415; 85610

== ENCOUNTER 2020-10-15 10:18 | Outpatient (RCR) | payer MEDICARE, OTHER, SELFPAY ==
[2020-08-01 09:50] VITALS: BMI 28.0
[2020-10-15 11:59] LABS: International Normalized Ratio 3.5; Prothrombin Time (Protime)PT. 34.4 SECONDS (11.7-14.9)
== END 2020-10-15 18:00 | disposition home or self-care (01) ==
LOC: LAB 10:18
PROVIDERS: Family Provider Family Medicine; PCP Family Medicine; Referring Provider Internal Medicine Cardiovascular Disease; Visit Provider Internal Medicine Cardiovascular Disease
DX: I48.0 Paroxysmal atrial fibrillation (principal); Z79.01 Long term (current) use of anticoagulants
CPT/HCPCS: 36415; 85610

== ENCOUNTER 2020-11-03 12:51 | Outpatient (RCR) | payer MEDICARE, OTHER, SELFPAY ==
[2020-08-01 09:50] VITALS: BMI 28.0
[2020-10-29 09:26] LABS: International Normalized Ratio 4.1; Prothrombin Time (Protime)PT. 38.6 SECONDS (11.7-14.9)
[2020-10-29 09:51] LABS: AST(SGOT) 27 U/L (15-37); Alanine Aminotransfer ALT/SGPT 38 U/L (13-56); Albumin, Serum 3.2 g/dL (3.2-5.0); Alkaline Phosphatase 110 U/L (45-117); Bilirubin, Direct 0.25 mg/dL (0.00-0.30); Cholesterol 121 mg/dL (200); Globulin 3.7 g/dL (2.2-4.2); High Density Lipoprotein 46 mg/dL; Protein, Total 6.9 g/dL (6.4-8.2); Triglycerides 70 mg/dL; Very Low Density Lipoprotein 14 mg/dL (5-40)
[2020-11-03 13:25] LABS: International Normalized Ratio 2.4; Prothrombin Time (Protime)PT. 25.5 SECONDS (11.7-14.9)
== END 2020-11-03 18:00 | disposition home or self-care (01) ==
LOC: LAB 12:51
PROVIDERS: Nurse Practitioner Family; Family Provider Family Medicine; PCP Family Medicine; Referring Provider Internal Medicine Cardiovascular Disease; Visit Provider Internal Medicine Cardiovascular Disease
DX: I48.0 Paroxysmal atrial fibrillation (principal); Z79.01 Long term (current) use of anticoagulants; E78.00 Pure hypercholesterolemia, unspecified; E78.5 Hyperlipidemia, unspecified
CPT/HCPCS: 36415; 80061; 80076; 85610

== ENCOUNTER 2020-11-25 11:00 | Outpatient (RCR) | payer MEDICARE, OTHER, SELFPAY ==
[2020-08-01 09:50] VITALS: BMI 28.0
[2020-11-25 11:58] LABS: International Normalized Ratio 2.4; Prothrombin Time (Protime)PT. 25.3 SECONDS (11.7-14.9)
== END 2020-11-25 18:00 | disposition home or self-care (01) ==
LOC: LAB 11:00
PROVIDERS: Family Provider Family Medicine; PCP Family Medicine; Referring Provider Internal Medicine Cardiovascular Disease; Visit Provider Internal Medicine Cardiovascular Disease
DX: I48.0 Paroxysmal atrial fibrillation (principal); Z79.01 Long term (current) use of anticoagulants
CPT/HCPCS: 36415; 85610

== ENCOUNTER 2021-01-09 15:04 | Outpatient (RCR) | payer MEDICARE, OTHER, SELFPAY ==
[2020-08-01 09:50] VITALS: BMI 28.0
[2020-12-24 12:48] LABS: International Normalized Ratio 3.4; Prothrombin Time (Protime)PT. 33.2 SECONDS (11.7-14.9)
[2021-01-09 17:07] LABS: International Normalized Ratio 1.9; Prothrombin Time (Protime)PT. 21.2 SECONDS (11.7-14.9)
== END 2021-01-09 18:00 | disposition home or self-care (01) ==
LOC: LAB 15:04
PROVIDERS: Family Provider Family Medicine; PCP Family Medicine; Referring Provider Internal Medicine Cardiovascular Disease; Visit Provider Internal Medicine Cardiovascular Disease
DX: I48.0 Paroxysmal atrial fibrillation (principal); Z79.01 Long term (current) use of anticoagulants
CPT/HCPCS: 36415; 85610

== ENCOUNTER 2021-02-06 09:08 | Outpatient (RCR) | payer MEDICARE, OTHER, SELFPAY ==
[2021-01-20 19:58] VITALS: BMI 28.0
[2021-02-06 09:49] LABS: International Normalized Ratio 2.1; Prothrombin Time (Protime)PT. 22.6 SECONDS (11.7-14.9)
== END 2021-02-06 18:00 | disposition home or self-care (01) ==
LOC: LAB 09:08
PROVIDERS: Family Provider Family Medicine; PCP Family Medicine; Referring Provider Internal Medicine Cardiovascular Disease; Visit Provider Internal Medicine Cardiovascular Disease
DX: I48.0 Paroxysmal atrial fibrillation (principal); Z79.01 Long term (current) use of anticoagulants
CPT/HCPCS: 36415; 85610

== ENCOUNTER 2021-03-04 13:06 | Outpatient (RCR) | payer MEDICARE, OTHER, SELFPAY ==
[2021-02-19 20:16] VITALS: BMI 28.0
[2021-03-04 14:43] LABS: Prothrombin Time (Protime)PT. 21.7 SECONDS (11.7-14.9)
== END 2021-03-22 03:30 | disposition home or self-care (01) ==
LOC: LAB 13:06
PROVIDERS: Family Provider Family Medicine; PCP Family Medicine; Referring Provider Internal Medicine Cardiovascular Disease; Visit Provider Internal Medicine Cardiovascular Disease
DX: I48.0 Paroxysmal atrial fibrillation (principal); Z79.01 Long term (current) use of anticoagulants
CPT/HCPCS: 36415; 85610

== ENCOUNTER 2021-04-03 08:19 | Outpatient (RCR) | payer MEDICARE, OTHER, SELFPAY ==
[2021-03-22 03:30] VITALS: BMI 28.0
[2021-04-03 09:15] LABS: International Normalized Ratio 2.1; Prothrombin Time (Protime)PT. 22.7 SECONDS (11.7-14.9)
== END 2021-04-21 18:00 | disposition home or self-care (01) ==
LOC: LAB 08:19
PROVIDERS: Family Provider Family Medicine; PCP Family Medicine; Referring Provider Internal Medicine Cardiovascular Disease; Visit Provider Internal Medicine Cardiovascular Disease
DX: I48.0 Paroxysmal atrial fibrillation (principal); Z79.01 Long term (current) use of anticoagulants
CPT/HCPCS: 36415; 85610

== ENCOUNTER 2021-05-01 09:52 | Outpatient (RCR) | payer MEDICARE, OTHER, SELFPAY ==
[2021-04-22 02:11] VITALS: BMI 28.0
[2021-05-01 10:48] LABS: Prothrombin Time (Protime)PT. 22.3 SECONDS (11.7-14.9)
[2021-05-01 11:13] LABS: AST(SGOT) 33 U/L (15-37); Alanine Aminotransfer ALT/SGPT 51 U/L (13-56); Albumin, Serum 3.4 g/dL (3.2-5.0); Alkaline Phosphatase 90 U/L (45-117); Bilirubin, Direct 0.18 mg/dL (0.00-0.30); Cholesterol 121 mg/dL (200); Globulin 3.7 g/dL (2.2-4.2); High Density Lipoprotein 52 mg/dL; Protein, Total 7.1 g/dL (6.4-8.2); Triglycerides 64 mg/dL; Very Low Density Lipoprotein 13 mg/dL (5-40)
== END 2021-05-23 18:00 | disposition home or self-care (01) ==
LOC: LAB 09:52
PROVIDERS: Family Provider Family Medicine; PCP Family Medicine; Referring Provider Internal Medicine Cardiovascular Disease; Visit Provider Internal Medicine Cardiovascular Disease
DX: I48.0 Paroxysmal atrial fibrillation (principal); Z79.01 Long term (current) use of anticoagulants; E78.00 Pure hypercholesterolemia, unspecified
CPT/HCPCS: 36415; 80061; 80076; 85610

== ENCOUNTER 2021-06-19 11:11 | Outpatient (RCR) | payer MEDICARE, OTHER, SELFPAY ==
[2021-05-24 03:44] VITALS: BMI 28.0
[2021-06-05 12:54] LABS: International Normalized Ratio 1.9; Prothrombin Time (Protime)PT. 20.7 SECONDS (11.7-14.9)
[2021-06-19 12:07] LABS: International Normalized Ratio 1.9; Prothrombin Time (Protime)PT. 20.9 SECONDS (11.7-14.9)
== END 2021-06-22 18:00 | disposition home or self-care (01) ==
LOC: LAB 11:11
PROVIDERS: Family Provider Family Medicine; PCP Family Medicine; Referring Provider Internal Medicine Cardiovascular Disease; Visit Provider Internal Medicine Cardiovascular Disease
DX: I48.0 Paroxysmal atrial fibrillation (principal); Z79.01 Long term (current) use of anticoagulants
CPT/HCPCS: 36415; 85610

== ENCOUNTER 2021-07-04 11:05 | Outpatient (RCR) | payer MEDICARE, OTHER, SELFPAY ==
[2021-06-22 22:46] VITALS: BMI 28.0
[2021-07-04 11:31] LABS: International Normalized Ratio 2.1; Prothrombin Time (Protime)PT. 22.5 SECONDS (11.7-14.9)
== END 2021-07-04 18:00 | disposition home or self-care (01) ==
LOC: LAB 11:05
PROVIDERS: Family Provider Family Medicine; PCP Family Medicine; Referring Provider Internal Medicine Cardiovascular Disease; Visit Provider Internal Medicine Cardiovascular Disease
DX: I48.0 Paroxysmal atrial fibrillation (principal); Z79.01 Long term (current) use of anticoagulants
CPT/HCPCS: 36415; 85610

== ENCOUNTER → 2021-09-24 | Outpatient (CLI) | payer MEDICARE, OTHER, SELFPAY ==
[2021-09-24 15:11] LABS: Prothrombin Time (Protime)PT. 21.9 SECONDS (11.7-14.9)
[2021-09-24 15:41] LABS: Thyroid Stim Hormone (TSH) 2.07 uIU/mL (0.358-3.74)
== END | disposition home or self-care (01) ==
LOC: LAB 14:43
PROVIDERS: PCP Family Medicine; Referring Provider Internal Medicine Cardiovascular Disease; Visit Provider Internal Medicine Cardiovascular Disease
DX: I48.0 Paroxysmal atrial fibrillation (principal); Z79.01 Long term (current) use of anticoagulants
CPT/HCPCS: 36415; 84443; 85610

== ENCOUNTER 2021-10-06 07:52 | Outpatient (RCR) | payer MEDICARE, OTHER, SELFPAY ==
[2021-07-21 09:29] VITALS: BMI 28.0
[2021-09-21 09:15] LABS: International Normalized Ratio 1.9; Prothrombin Time (Protime)PT. 21.1 SECONDS (11.7-14.9)
[2021-10-06 08:40] LABS: International Normalized Ratio 2.2; Prothrombin Time (Protime)PT. 23.8 SECONDS (11.7-14.9)
[2021-10-06 08:59] LABS: AST(SGOT) 31 U/L (15-37); Alanine Aminotransfer ALT/SGPT 44 U/L (13-56); Albumin, Serum 3.3 g/dL (3.2-5.0); Alkaline Phosphatase 78 U/L (45-117); Bilirubin, Direct 0.18 mg/dL (0.00-0.30); Cholesterol 123 mg/dL (200); Globulin 3.5 g/dL (2.2-4.2); High Density Lipoprotein 47 mg/dL; Protein, Total 6.8 g/dL (6.4-8.2); Triglycerides 73 mg/dL; Very Low Density Lipoprotein 15 mg/dL (5-40)
== END 2021-10-06 18:00 | disposition home or self-care (01) ==
LOC: LAB 07:52
PROVIDERS: Family Provider Family Medicine; PCP Family Medicine; Referring Provider Internal Medicine Cardiovascular Disease; Visit Provider Internal Medicine Cardiovascular Disease
DX: I48.0 Paroxysmal atrial fibrillation (principal); Z79.01 Long term (current) use of anticoagulants; E78.00 Pure hypercholesterolemia, unspecified
CPT/HCPCS: 36415; 80061; 80076; 85610

== ENCOUNTER 2021-10-19 19:22 | Emergency (ER) | payer MEDICARE, OTHER, SELFPAY ==
[2021-10-19 19:23] VITALS: PULSE 64; TEMP 36.5; O2SAT 98; BMI 26.9
[2021-10-19 19:27] VITALS: BP 162/71; PULSE 64; RESP 15; TEMP 36.5; O2SAT 98
[2021-10-19] MEDS: HYDROcodone Bitartrate/Apap 5/325 Tablet PO (19:50)
--- NOTE | 2021-10-19 20:00 | RAD_ITS ---
STUDY: XR Shoulder Min 2 Views REASON FOR EXAM: Female, 86 years old. fall TECHNIQUE: XR Shoulder Min 2 Views LEFT COMPARISON: None. FINDINGS: Normal glenohumeral articulation. There is degenerative arthrosis of the acromioclavicular joint without inferior osseous spur formation. Normal acromion. There is a left sided pacemaker battery pack. Left humeral head and neck fracture. The soft tissue structures are unremarkable. Normal visualized pulmonary apex. RAD/Shoulder min 2 Views IMPRESSION: Left humeral head and neck fracture. Electronically Signed: Rony Lopez MD at 20:19 EDT ,
--- NOTE | 2021-10-19 20:54 | EDS_ITS ---
HPI HPI - Fall History of Present Illness Chief Complaint: Fall Narrative Narrative: Patient sustained mechanical fall at home she got tangled while trying to reach for wood on her deck. She did not hit her head, she has no neck pain or any other injury her only injury is left shoulder region. She comes in via EMS and is hard for her to ambulate afterwards. [facility] Medical History (Updated 10/19/21 @ 20:[address] 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 (congestive heart failure) Diastolic dysfunction Dizziness and giddiness Elevated liver enzymes Essential (primary) hypertension GI bleed High risk medication use HLD (hyperlipidemia) Ischemic cardiomyopathy FDC current use of anticoagulant Monomorphic ventricular tachycardia Non-rheumatic tricuspid valve insufficiency Nonrheumatic mitral (valve) insufficiency Old anterior wall myocardial infarction Paroxysmal atrial fibrillation Secondary pulmonary arterial hypertension Shortness of breath Home Medications multivitamin 1 ea PO DAILY 04/28/15 [History Last Taken Unknown] vit C 250 mg-vit E 90 mg-zinc 40 mg-copper 1 [id number] capsule See Rx Instructions PO DAILY 05/03/17 [History Last Taken Unknown] furosemide 40 mg tablet 40 mg PO QDAY #90 tab 12/26/20 [Rx Last Taken Unknown] amiodarone 200 mg tablet 100 mg PO .COMPLEX #45 tab 03/17/21 [Rx Last Taken Unknown] warfarin 3 mg tablet 3 mg PO QDAY #90 tab 03/17/21 [Rx Last Taken Unknown] atorvastatin 80 mg tablet 80 mg PO QHS #90 tab 08/17/21 [Rx Last Taken Unknown] carvedilol 25 mg tablet 25 mg PO BID #180 tab 10/07/21 [Rx Last Taken Unknown] hydrocodone-acetaminophen 1 tab PO QHS PRN 3 Days #10 tab 10/19/21 [Rx Last Taken Unknown] lisinopril 10 mg PO DAILY 10/19/21 [History Last Taken Unknown] Allergy/AdvReac Type Severity Reaction Status Date / Time Penicillins Allergy Unknown Verified 10/19/21 19:23 Sulfa (Sulfonamide Allergy Unknown Verified 10/19/21 19:23 Antibiotics) Family History Father CAD (coronary artery disease) Myocardial infarction, Onset Age: 75 Brother Diabetes Mother Diabetes Breast cancer COPD (chronic obstructive pulmonary disease) Daughter Cancer Surgical History History of coronary artery stent placement (12/25/13) History of hysterectomy History of implantable cardioverter-defibrillator (ICD) placement (05/01/15) History of left heart catheterization (10/03/15) Social History Smoking Status: Never smoker alcohol intake: current substance use type: does not use caffeine: Yes what type of physical activity do you participate in: none seatbelt use: always ROS ROS ED ROS Narrative Social: Noncontributory Medications: Reviewed Past medical history: Reviewed Review of systems General: Patient has no head injury or loss of consciousness HEENT: No facial injury Neck: No neck pain Cardiovascular: Patient denies any chest pain or palpitations Chest wall: No chest wall contusions Respiratory: There is no shortness of breath GI: There is no nausea vomiting diarrhea or abdominal pain, no abdominal wall contusions Skin: No lacerations or abrasions Neurological: Patient has no memory loss, confusion, or any focal weakness Psychiatric: No recent behavioral changes Back: No back pain, no problems with ambulation Musculoskeletal: Left shoulder injury otherwise no other extremity injury All other systems are reviewed and normal EXAM Physical Exam Narrative Exam Narrative: Physical exam Vitals reviewed General: Patient appears uncomfortable HEENT: No facial injury Head: No head injury Eyes: Extraocular movements intact Neck: No C-spine tenderness with full range of motion Heart: Regular rate normal pulses Chest wall: No chest wall pain Lungs clear lungs bilaterally with normal inspiration and expiration without tachypnea GI: Abdomen is soft and nontender there is no mass no guarding no abdominal wall contusion : Stable pelvis Musculoskeletal: Left shoulder reveals quite a bit of proximal humerus tenderness with swelling in that region no obvious deformity. No AC joint tenderness. Neurovascularly intact Skin: No abrasions or laceration Neurological: Patient is alert and oriented with no focal deficits Const Vital Signs: 10/19/21 19:23 10/19/21 19:27 10/19/21 19:30 Temperature 97.7 F L 97.7 F L Temperature Source Temporal Temporal Pulse Rate 64 64 Respiratory Rate 15 Respiratory Effort Normal Respiratory Depth Normal Blood Pressure 162/71 H Blood Pressure Mean 101 Pulse Ox 98 98 Oxygen Delivery Method Room Air Room Air MDM MDM MDM Narrative Medical decision making narrative: Patient has a proximal humerus fracture sling and swath was applied, she is able to ambulate and wants to be discharged. I will discharge with orthopedic follow-up. Radiography Diagnostic Testing: Clinical Impression(s) from Imaging Studies Shoulder X-Ray 10/19/21 20:00 IMPRESSION: Left humeral head and neck fracture. Electronically Signed: Rony Lopez MD at 20:19 EDT Reading Location ID and State: [facility] / [place] , Service support , X-ray shoulder read by me and radiologist shows a left proximal humeral fracture Discharge Plan Triage Chief Complaint: Fall ED Provider: Donaldo Leggett Dx/Rx/DC Orders Clinical Impression: Fracture of proximal end of humerus, Fall Instructions: ED Fracture, Shoulder Prescriptions: New hydrocodone-acetaminophen 5-325 mg tablet 1 tab PO QHS PRN (Reason: pain) 3 Days Qty: 10 RF: 0 No Action multivitamin 1 EACH tablet 1 ea PO DAILY RF: 0 vit C,R-Gy-sdatv-lutein-zeaxan 1 EACH capsule See Rx Instructions PO DAILY RF: 0 lisinopril 20 mg tablet 10 mg PO DAILY RF: 0 furosemide 40 mg tablet 40 mg PO QDAY Qty: 90 RF: 4 warfarin 3 mg tablet 3 mg PO QDAY Qty: 90 RF: 3 amiodarone 200 mg tablet 100 mg PO .COMPLEX Qty: 45 RF: 3 atorvastatin 80 mg tablet 80 mg PO QHS Qty: 90 RF: 3 carvedilol 25 mg tablet 25 mg PO BID Qty: 180 RF: 3 Primary Care Provider: Olivier Singh Referrals: Olivier Singh MD [Primary Care Provider] - Gianni Zepeda DO [STAFF PHYSICIAN] - 2 Days Disposition Disposition: Home, Self Care
== END 2021-10-19 21:08 | disposition home or self-care (01) ==
PROVIDERS: Emergency Provider Emergency Medicine; PCP Family Medicine; Visit Provider Emergency Medicine
DX: S42.202A Unspecified fracture of upper end of left humerus, initial encounter for closed fracture (principal); I11.0 Hypertensive heart disease with heart failure; I50.42 Chronic combined systolic (congestive) and diastolic (congestive) heart failure; I27.21 Secondary pulmonary arterial hypertension; I25.5 Ischemic cardiomyopathy; W19.XXXA Unspecified fall, initial encounter; I25.10 Atherosclerotic heart disease of native coronary artery without angina pectoris; E78.5 Hyperlipidemia, unspecified; Y92.009 Unspecified place in unspecified non-institutional (private) residence as the place of occurrence of the external cause; Z87.19 Personal history of other diseases of the digestive system; I25.2 Old myocardial infarction; Z79.899 Other long term (current) drug therapy; Z79.01 Long term (current) use of anticoagulants; Z95.810 Presence of automatic (implantable) cardiac defibrillator
CPT/HCPCS: 73030; 99285; A4216

== ENCOUNTER 2021-10-22 09:52 | Emergency (ER) | payer MEDICARE, OTHER, SELFPAY ==
[2021-10-22 09:53] VITALS: BP 132/53; PULSE 61; RESP 16; TEMP 36.7; O2SAT 97; BMI 27.7
--- NOTE | 2021-10-22 10:22 | EKG12_ITS ---
Test Reason : Blood Pressure : / mmHG Vent. Rate : 060 BPM Atrial Rate : 051 BPM P-R Int : 306 ms QRS Dur : 158 ms QT Int : 482 ms P-R-T Axes : 000 -66 120 degrees QTc Int : 482 ms Atrial-paced rhythm with prolonged AV conduction Left axis deviation Left ventricular hypertrophy with QRS widening Abnormal ECG Confirmed by STEW MONTEMAYOR, POORNIMA ([id number]), industrial editor KYRA WAGGONER ([id number]) on 10/26/2021 12:46:23 PM Referred By: BETINA Confirmed By:POORNIMA MATHIAS MD
--- NOTE | 2021-10-22 10:23 | EX.ED.DYSGE1 ---
HPI History of Present Illness Chief Complaint: Hypotension Informant: patient and family Narrative Narrative: Patient presents with an episode of lightheadedness and low blood pressure this morning. She had a fall about 3 days ago. She broke her humerus. She denies anything else hurting. She has been taking hydrocodone at night for the pain. This has been causing some nausea and decreased appetite but no vomiting. She takes half of the Motrin on occasion for the pain. She has done this before without any problems. She has not had blood in the stool. She has had no vomiting. This morning she just did not feel well. She felt like she had a dry mouth. Family states she just did not look well so they took her blood pressure and it was in the 70s systolic. I do not have a heart rate. She states she did not feel short of breath or chest pain or pressure at all. She just felt weak and did not feel well. The symptoms resolved. She still has a bit of a dry mouth but thinks she has not been drinking much. No change in her other medications including Lasix. She did not take the pain meds this morning. She tries to only take them at night. [facility] Medical History (Updated 10/22/21 @ 13:[address] 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 systolic and diastolic CHF (congestive heart failure) Diastolic dysfunction Dizziness and giddiness Elevated liver enzymes Essential (primary) hypertension GI bleed High risk medication use HLD (hyperlipidemia) Ischemic cardiomyopathy [facility] current use of anticoagulant Monomorphic ventricular tachycardia Non-rheumatic tricuspid valve insufficiency Nonrheumatic mitral (valve) insufficiency Old anterior wall myocardial infarction Paroxysmal atrial fibrillation Secondary pulmonary arterial hypertension Shortness of breath Home Medications multivitamin 1 ea PO DAILY 04/28/15 [History Last Taken Unknown] vit C 250 mg-vit E 90 mg-zinc 40 mg-copper 1 [id number]-xeogip capsule See Rx Instructions PO DAILY 05/03/17 [History Last Taken Unknown] furosemide 40 mg tablet 40 mg PO QDAY #90 tab 12/26/20 [Rx Last Taken Unknown] amiodarone 200 mg tablet 100 mg PO .COMPLEX #45 tab 03/17/21 [Rx Last Taken Unknown] warfarin 3 mg tablet 3 mg PO QDAY #90 tab 03/17/21 [Rx Last Taken Unknown] atorvastatin 80 mg tablet 80 mg PO QHS #90 tab 08/17/21 [Rx Last Taken Unknown] carvedilol 25 mg tablet 25 mg PO BID #180 tab 10/07/21 [Rx Last Taken Unknown] hydrocodone-acetaminophen 1 tab PO QHS PRN 3 Days #10 tab 10/19/21 [Rx Last Taken Unknown] lisinopril 10 mg PO DAILY 10/19/21 [History Last Taken Unknown] Allergy/AdvReac Type Severity Reaction Status Date / Time Penicillins Allergy Unknown Verified 10/22/21 09:53 Sulfa (Sulfonamide Allergy Unknown Verified 10/22/21 09:53 Antibiotics) Family History Father CAD (coronary artery disease) Myocardial infarction, Onset Age: 75 Brother Diabetes Mother Diabetes Breast cancer COPD (chronic obstructive pulmonary disease) Daughter Cancer Surgical History History of coronary artery stent placement (12/25/13) History of hysterectomy History of implantable cardioverter-defibrillator (ICD) placement (05/01/15) History of left heart catheterization (10/03/15) Social History Smoking Status: Never smoker alcohol intake: current substance use type: does not use caffeine: Yes what type of physical activity do you participate in: none seatbelt use: always ROS ROS ED Constitutional Constitutional ED: Denies chills or fever(s) Eyes Eyes: Denies blurry vision or diplopia ENT ENT ED: Denies rhinorrhea or sore throat Cardiovascular Cardiovascular: Denies chest pain, palpitations or racing heartbeat Respiratory/Chest Respiratory/Chest: Denies cough or dyspnea Gastrointestinal Gastrointestinal: Reports nausea; Denies abdominal pain, constipation, diarrhea or vomiting Genitourinary Genitourinary ED: Denies dysuria or hematuria Musculoskeletal Musculoskeletal: Reports other Details: Left shoulder pain but reasonably well controlled. No new areas of pain. Integumentary Denies rash Neurologic Neurologic: Denies headache(s) Psychiatric Psychiatric: Denies anxiety or depression Endocrine Endocrinology: Denies polydipsia or polyuria Allergic/Immunologic Allergic/Immunologic ED: Denies urticaria EXAM Physical Exam Const Vital Signs: 10/22/21 09:53 10/22/21 09:56 10/22/21 12:00 Temperature 98.1 F Temperature Source Oral Pulse Rate 61 61 Respiratory Rate 16 18 Respiratory Effort Normal Non-Labored Respiratory Pattern Normal Blood Pressure 132/53 H 145/62 H Blood Pressure Mean 79 89 Pulse Ox 97 97 Oxygen Delivery Method Room Air Room Air Positive well nourished and well developed General Appearance ED: well developed and NAD; Negative for cyanotic or diaphoretic HEENT Reports dry mucous membranes Mouth ED: Yes dry mucous membranes Mouth: dry mucous membranes Eyes General Eye ED: Negative for pale conjunctiva or scleral icterus Neck no JVD Chest Wall inspection of chest normal Resp normal respiratory effort and clear to auscultation bilaterally Cardio regular rate and regular rhythm GI normal to inspection, nondistended, normoactive bowel sounds, non-tender, non-distended and no masses Auscultation: normoactive bowel sounds Palpation: soft; Negative for tender, guarding or rebound tenderness present Back/Spine no CVA tenderness Extremity Extremity Narrative: Splint on left upper extremity. Mild bruising. Lower extremities show no edema cords or tenderness. She states she had had a little left ankle soreness but she is walking on it fine and it does not hurt to press. Neuro oriented x3 Sensorium / Orientation: alert Psych mental status grossly normal Skin no rashes or lesions noted MDM MDM MDM Narrative Medical decision making narrative: Patient CBC does show some anemia. But her last CBC is 4 years ago. She has some bruising on her left arm but her arm is not tense. We watched her in the department and did not change or worsen. INR is therapeutic. Electrolytes show minimally low potassium. This should self correct. Patient's blood pressures have been great here. She is asymptomatic. She wants to go home. She thinks this is likely related to the narcotic as it was causing a lot of nausea. This may have been a vagal response with the nausea. She has a very supportive family with her. We discussed avoiding the pain meds. She states she really does not feel as though she needs anything but was taking it to try to avoid pain. But she feels comfortable. We discussed reasons to return. Lab Data Attestation: I reviewed the patient's lab results. Labs: Laboratory Results - last 24 hr 10/22/21 10/22/21 10/22/21 10:50 10:50 10:50 WBC 4.5 RBC 3.13 L Hgb 10.0 L Hct 30.8 L MCV 98.4 MCH 31.9 MCHC 32.5 RDW Std Deviation 47.2 H RDW Coeff of Chiqui 13.2 Plt Count 84 L MPV 10.9 Immature Gran % (Auto) 0.400 Neut % (Auto) 76.8 H Lymph % (Auto) 10.3 L Parke % (Auto) 12.1 H Eos % (Auto) 0.2 Baso % (Auto) 0.2 Absolute Neuts (auto) 3.4 Absolute Lymphs (auto) 0.46 L Nucleated RBC % 0 Diff Path Review September foll Platelet Estimate SLT APR PT 25.8 H INR 2.4 Sodium 141 Potassium 3.4 L Chloride 105 Carbon Dioxide 30.0 Anion Gap 6 BUN 28 H Creatinine 1.05 H Estim Creat Clear Calc 37.40 Est GFR (MDRD) Af Amer 64 Est GFR (MDRD) Non-Af 53 L BUN/Creatinine Ratio 26.7 H Glucose 137 H Calcium 8.3 L Troponin I High Sens 29 EKG Initial EKG: Comments: EKG the shows atrial paced rhythm with a rate of 60. Typical bundle branch pattern with ST changes. This is similar to 30 July 2017. Discharge Plan Triage Chief Complaint: Hypotension ED Provider: Saulo Infante Dx/Rx/DC Orders Clinical Impression: Transient hypotension, Medication reaction Instructions: ED Low Blood Pressure, All Causes Prescriptions: No Action multivitamin 1 EACH tablet 1 ea PO DAILY RF: 0 vit C,K-Sn-dnahr-lutein-zeaxan 1 EACH capsule See Rx Instructions PO DAILY RF: 0 lisinopril 20 mg tablet 10 mg PO DAILY RF: 0 hydrocodone-acetaminophen 5-325 mg tablet 1 tab PO QHS PRN (Reason: pain) 3 Days Qty: 10 RF: 0 furosemide 40 mg tablet 40 mg PO QDAY Qty: 90 RF: 4 warfarin 3 mg tablet 3 mg PO QDAY Qty: 90 RF: 3 amiodarone 200 mg tablet 100 mg PO .COMPLEX Qty: 45 RF: 3 atorvastatin 80 mg tablet 80 mg PO QHS Qty: 90 RF: 3 carvedilol 25 mg tablet 25 mg PO BID Qty: 180 RF: 3 Primary Care Provider: Olivier Singh Referrals: Francisco,Olivier, MD [Primary Care Provider] - 1-2 Days if not improving Disposition Disposition: Home, Self Care
[2021-10-22 11:01] LABS: Absolute Lymphocyte Count 0.46 X10^3/uL (0.83-4.51); Absolute Neutrophil Count 3.4 X10^3/uL (2.0-7.7); Basophil# 0.01 X10^3/uL; Basophil% 0.2 % (0-1); Eosinophil# 0.01 X10^3/uL; Eosinophils% 0.2 % (0-5); Hematocrit 30.8 % (37-47); Lymphocyte # 0.46 X10^3/ul (0.83-4.51); Lymphocyte % 10.3 % (19-41); Mean Corp Hgb Conc 32.5 g/dL (32-36); Mean Corpuscular Hgb 31.9 pg (27.0-32.0); Mean Corpuscular Volume 98.4 fL (81-99); Mean Platelet Vol. 10.9 fl (6.2-12.0); Monocyte# 0.54 X10^3/uL; Monocyte% 12.1 % (0-10); NRBC Flagged by Analyzer 0 % (0-5); Neutrophil # 3.41 X10^3/uL (2.7-7.7); Neutrophil % 76.8 % (47-70); POSITIVE COUNT YES; POSITIVE DIFFERENTIAL YES; Platelet Count 84 K/mm3 (150-450); RBC Distribution Width CV 13.2 % (11.6-14.6); RBC Distribution Width SD 47.2 fl (35.1-43.9); Red Blood Count 3.13 M/mm3 (4.2-5.4); White Blood Count 4.5 K/mm3 (4.4-11.0)
[2021-10-22 11:02] LABS: Differential Indicated SCAN CRITERIA MET
[2021-10-22 11:10] LABS: International Normalized Ratio 2.4; Prothrombin Time (Protime)PT. 25.8 SECONDS (11.7-14.9)
[2021-10-22 11:17] LABS: Anion Gap 6 (5-15); BUN 28 mg/dL (7-18); BUN/Creat Ratio 26.7 RATIO (10-20); Calcium,Total 8.3 mg/dL (8.5-10.1); Chloride 105 mmol/L (98-107); Creatinine, Serum 1.05 mg/dL (0.55-1.02); EST Glomerular Filtration Rate 53 mL/min (>60); Est Glom Filt Rate - Afr Amer 64 mL/min (>60); Glucose 137 mg/dL (74-106); Potassium 3.4 mmol/L (3.5-5.1); Sodium Level 141 mmol/L (136-145); Troponin-I HS 29 pg/mL (3.0-54.0)
[2021-10-22 11:39] LABS: Platelet Estimate SLT DEC (ADEQ)
[2021-10-22 12:00] VITALS: BP 145/62; PULSE 61; RESP 18; O2SAT 97
[2021-10-22 13:20] VITALS: BP 142/78; PULSE 78; RESP 16; TEMP 37.1; O2SAT 100
[2021-10-23 09:17] LABS: Pathologist Review Reviewed
== END 2021-10-22 13:21 | disposition home or self-care (01) ==
PROVIDERS: Emergency Provider Emergency Medicine; PCP Family Medicine; Visit Provider Emergency Medicine
DX: I95.9 Hypotension, unspecified (principal); T50.905A Adverse effect of unspecified drugs, medicaments and biological substances, initial encounter; I25.10 Atherosclerotic heart disease of native coronary artery without angina pectoris; I25.2 Old myocardial infarction; Z95.5 Presence of coronary angioplasty implant and graft; Z95.810 Presence of automatic (implantable) cardiac defibrillator
CPT/HCPCS: 80048; 84484; 85025; 85610; 93005; 99285; A4216

== ENCOUNTER 2021-11-03 13:14 | Outpatient (RCR) | payer MEDICARE, OTHER, SELFPAY ==
[2021-10-20 20:28] VITALS: BMI 28.0
[2021-11-03 13:51] LABS: International Normalized Ratio 2.4; Prothrombin Time (Protime)PT. 26.1 SECONDS (11.7-14.9)
== END 2021-11-03 23:59 | disposition home or self-care (01) ==
LOC: LAB 13:14
PROVIDERS: Family Provider Family Medicine; PCP Family Medicine; Referring Provider Internal Medicine Cardiovascular Disease; Visit Provider Internal Medicine Cardiovascular Disease
DX: I48.0 Paroxysmal atrial fibrillation (principal); Z79.01 Long term (current) use of anticoagulants
CPT/HCPCS: 36415; 85610

== ENCOUNTER → 2021-11-25 | Outpatient (CLI) | payer MEDICARE, OTHER, SELFPAY ==
[2021-11-25 11:43] LABS: International Normalized Ratio 4.5
[2021-11-25 13:35] LABS: Prothrombin Time (Protime)PT. 42.2 SECONDS (11.7-14.9)
== END | disposition home or self-care (01) ==
LOC: LAB 08:17
PROVIDERS: PCP Family Medicine; Referring Provider Internal Medicine Cardiovascular Disease; Visit Provider Internal Medicine Cardiovascular Disease
DX: I48.0 Paroxysmal atrial fibrillation (principal); Z79.01 Long term (current) use of anticoagulants
CPT/HCPCS: 36415; 85610

== ENCOUNTER → 2021-11-30 | Outpatient (CLI) | payer MEDICARE, OTHER, SELFPAY ==
[2021-11-30 10:59] LABS: International Normalized Ratio 3.5; Prothrombin Time (Protime)PT. 35.1 SECONDS (11.7-14.9)
== END | disposition home or self-care (01) ==
LOC: LAB 08:55
PROVIDERS: PCP Family Medicine; Referring Provider Internal Medicine Cardiovascular Disease; Visit Provider Internal Medicine Cardiovascular Disease
DX: I48.0 Paroxysmal atrial fibrillation (principal); Z79.01 Long term (current) use of anticoagulants
CPT/HCPCS: 36415; 85610

== ENCOUNTER → 2021-12-14 | Outpatient (CLI) | payer MEDICARE, OTHER, SELFPAY ==
[2021-12-14 10:59] LABS: International Normalized Ratio 1.9; Prothrombin Time (Protime)PT. 21.7 SECONDS (11.7-14.9)
== END | disposition home or self-care (01) ==
LOC: LAB 09:30
PROVIDERS: PCP Family Medicine; Visit Provider Internal Medicine Cardiovascular Disease
DX: I48.0 Paroxysmal atrial fibrillation (principal); Z79.01 Long term (current) use of anticoagulants
CPT/HCPCS: 36415; 85610

== ENCOUNTER 2021-12-22 11:43 | Outpatient (RCR) | payer MEDICARE, OTHER, SELFPAY ==
[2021-11-20 06:49] VITALS: BMI 28.0
[2021-12-22 13:03] LABS: Prothrombin Time (Protime)PT. 22.2 SECONDS (11.7-14.9)
== END 2021-12-22 18:00 | disposition home or self-care (01) ==
LOC: LAB 11:43
PROVIDERS: Family Provider Family Medicine; PCP Family Medicine; Referring Provider Internal Medicine Cardiovascular Disease; Visit Provider Internal Medicine Cardiovascular Disease
DX: I48.0 Paroxysmal atrial fibrillation (principal); Z79.01 Long term (current) use of anticoagulants
CPT/HCPCS: 36415; 85610

== ENCOUNTER → 2022-01-19 | Outpatient (CLI) | payer MEDICARE, OTHER, SELFPAY ==
[2022-01-19 10:47] LABS: International Normalized Ratio 2.2; Prothrombin Time (Protime)PT. 24.3 SECONDS (11.7-14.9)
== END | disposition home or self-care (01) ==
LOC: LAB 09:04
PROVIDERS: PCP Family Medicine; Visit Provider Internal Medicine Cardiovascular Disease
DX: I48.0 Paroxysmal atrial fibrillation (principal); Z79.01 Long term (current) use of anticoagulants
CPT/HCPCS: 36415; 85610

== ENCOUNTER → 2022-02-16 | Outpatient (CLI) | payer MEDICARE, OTHER, SELFPAY ==
[2022-02-16 12:05] LABS: International Normalized Ratio 2.5
== END | disposition home or self-care (01) ==
LOC: LAB 10:06
PROVIDERS: PCP Family Medicine; Visit Provider Internal Medicine Cardiovascular Disease
DX: I48.0 Paroxysmal atrial fibrillation (principal); Z79.01 Long term (current) use of anticoagulants
CPT/HCPCS: 36415; 85610

== ENCOUNTER → 2022-03-17 | Outpatient (CLI) | payer MEDICARE, OTHER, SELFPAY ==
[2022-03-17 10:05] LABS: INR Fingerstick 1.8; Prothrombin Time Fingerstick 21.7 SEC (11.7-14.9)
== END | disposition home or self-care (01) ==
LOC: LAB 08:18
PROVIDERS: PCP Family Medicine; Visit Provider Internal Medicine Cardiovascular Disease
DX: I48.0 Paroxysmal atrial fibrillation (principal); Z79.899 Other long term (current) drug therapy
CPT/HCPCS: 36416; 85610

== ENCOUNTER → 2022-03-31 | Outpatient (CLI) | payer MEDICARE, OTHER, SELFPAY ==
[2022-03-31 11:20] LABS: International Normalized Ratio 2.3
[2022-03-31 11:52] LABS: AST(SGOT) 29 U/L (15-37); Alanine Aminotransfer ALT/SGPT 38 U/L (13-56); Albumin, Serum 3.2 g/dL (3.2-5.0); Alkaline Phosphatase 76 U/L (45-117); Bilirubin, Direct 0.28 mg/dL (0.00-0.30); Cholesterol 109 mg/dL (200); Globulin 3.8 g/dL (2.2-4.2); High Density Lipoprotein 39 mg/dL; Triglycerides 71 mg/dL; Very Low Density Lipoprotein 14 mg/dL (5-40)
== END | disposition home or self-care (01) ==
LOC: LAB 08:35
PROVIDERS: PCP Family Medicine; Referring Provider Internal Medicine Cardiovascular Disease; Visit Provider Internal Medicine Cardiovascular Disease
DX: I48.0 Paroxysmal atrial fibrillation (principal); E78.5 Hyperlipidemia, unspecified; Z79.01 Long term (current) use of anticoagulants
CPT/HCPCS: 36415; 80061; 80076; 85610

== ENCOUNTER → 2022-04-20 | Outpatient (CLI) | payer MEDICARE, OTHER, SELFPAY ==
[2022-04-20 11:44] LABS: International Normalized Ratio 3.5; Prothrombin Time (Protime)PT. 34.5 SECONDS (11.7-14.9)
== END | disposition home or self-care (01) ==
LOC: LAB 09:06
PROVIDERS: PCP Family Medicine; Visit Provider Internal Medicine Cardiovascular Disease
DX: I48.0 Paroxysmal atrial fibrillation (principal); Z79.01 Long term (current) use of anticoagulants
CPT/HCPCS: 36415; 85610

== ENCOUNTER → 2022-04-27 | Outpatient (CLI) | payer MEDICARE, OTHER, SELFPAY ==
[2022-04-27 13:31] LABS: International Normalized Ratio 2.4; Prothrombin Time (Protime)PT. 26.2 SECONDS (11.7-14.9)
== END | disposition home or self-care (01) ==
LOC: LAB 09:45
PROVIDERS: PCP Family Medicine; Visit Provider Internal Medicine Cardiovascular Disease
DX: I48.0 Paroxysmal atrial fibrillation (principal); Z79.01 Long term (current) use of anticoagulants
CPT/HCPCS: 36415; 85610

== ENCOUNTER → 2022-05-13 | Outpatient (CLI) | payer MEDICARE, OTHER, SELFPAY ==
[2022-05-13 11:15] LABS: International Normalized Ratio 2.5; Prothrombin Time (Protime)PT. 26.2 SECONDS (11.7-14.9)
== END | disposition home or self-care (01) ==
LOC: LAB 07:46
PROVIDERS: PCP Family Medicine; Referring Provider Internal Medicine Cardiovascular Disease; Visit Provider Internal Medicine Cardiovascular Disease
DX: I48.0 Paroxysmal atrial fibrillation (principal); Z79.01 Long term (current) use of anticoagulants
CPT/HCPCS: 36415; 85610

== ENCOUNTER → 2022-06-07 | Outpatient (CLI) | payer MEDICARE, OTHER, SELFPAY ==
[2022-06-07 12:23] LABS: International Normalized Ratio 2.3; Prothrombin Time (Protime)PT. 24.9 SECONDS (11.7-14.9)
== END | disposition home or self-care (01) ==
LOC: LAB 12:02
PROVIDERS: PCP Family Medicine; Visit Provider Internal Medicine Cardiovascular Disease
DX: I48.0 Paroxysmal atrial fibrillation (principal); Z79.01 Long term (current) use of anticoagulants
CPT/HCPCS: 36415; 85610

== ENCOUNTER → 2022-07-08 | Outpatient (CLI) | payer MEDICARE, OTHER, SELFPAY ==
[2022-07-08 11:46] LABS: International Normalized Ratio 2.2; Prothrombin Time (Protime)PT. 24.3 SECONDS (11.7-14.9)
== END | disposition home or self-care (01) ==
LOC: LAB 07:51
PROVIDERS: PCP Family Medicine; Referring Provider Internal Medicine Cardiovascular Disease; Visit Provider Internal Medicine Cardiovascular Disease
DX: I48.0 Paroxysmal atrial fibrillation (principal); Z79.01 Long term (current) use of anticoagulants
CPT/HCPCS: 36415; 85610

== ENCOUNTER → 2022-08-04 | Outpatient (CLI) | payer MEDICARE, OTHER, SELFPAY ==
[2022-08-04 11:43] LABS: International Normalized Ratio 2.2; Prothrombin Time (Protime)PT. 24.5 SECONDS (11.7-14.9)
== END | disposition home or self-care (01) ==
LOC: LAB 07:58
PROVIDERS: PCP Family Medicine; Visit Provider Internal Medicine Cardiovascular Disease
DX: I48.0 Paroxysmal atrial fibrillation (principal); Z79.01 Long term (current) use of anticoagulants
CPT/HCPCS: 36415; 85610

== ENCOUNTER → 2022-09-01 | Outpatient (CLI) | payer MEDICARE, OTHER, SELFPAY ==
[2022-09-01 11:27] LABS: International Normalized Ratio 1.9; Prothrombin Time (Protime)PT. 21.1 SECONDS (11.7-14.9)
== END | disposition home or self-care (01) ==
LOC: LAB 08:14
PROVIDERS: PCP Family Medicine; Visit Provider Internal Medicine Cardiovascular Disease
DX: I48.0 Paroxysmal atrial fibrillation (principal); Z79.01 Long term (current) use of anticoagulants
CPT/HCPCS: 36415; 85610

== ENCOUNTER → 2022-09-16 | Outpatient (CLI) | payer MEDICARE, OTHER, SELFPAY ==
[2022-09-16 11:23] LABS: International Normalized Ratio 2.1; Prothrombin Time (Protime)PT. 22.9 SECONDS (11.7-14.9)
== END | disposition home or self-care (01) ==
LOC: LAB 08:10
PROVIDERS: PCP Family Medicine; Referring Provider Internal Medicine Cardiovascular Disease; Visit Provider Internal Medicine Cardiovascular Disease
DX: I48.0 Paroxysmal atrial fibrillation (principal); Z79.01 Long term (current) use of anticoagulants
CPT/HCPCS: 36415; 85610

== ENCOUNTER → 2022-10-14 | Outpatient (CLI) | payer MEDICARE, OTHER, SELFPAY ==
[2022-10-14 11:24] LABS: International Normalized Ratio 1.9; Prothrombin Time (Protime)PT. 22.1 SECONDS (11.7-14.9)
[2022-10-14 11:33] LABS: AST(SGOT) 46 U/L (15-37); Alanine Aminotransfer ALT/SGPT 57 U/L (13-56); Albumin, Serum 3.2 g/dL (3.2-5.0); Alkaline Phosphatase 88 U/L (45-117); Bilirubin, Direct 0.15 mg/dL (0.00-0.30); Cholesterol 120 mg/dL (200); Globulin 4.4 g/dL (2.2-4.2); High Density Lipoprotein 38 mg/dL; Protein, Total 7.6 g/dL (6.4-8.2); Triglycerides 90 mg/dL; Very Low Density Lipoprotein 18 mg/dL (5-40)
== END | disposition home or self-care (01) ==
LOC: LAB 08:28
PROVIDERS: PCP Family Medicine; Referring Provider Internal Medicine Cardiovascular Disease; Visit Provider Internal Medicine Cardiovascular Disease
DX: I48.0 Paroxysmal atrial fibrillation (principal); Z79.01 Long term (current) use of anticoagulants; E78.5 Hyperlipidemia, unspecified
CPT/HCPCS: 36415; 80061; 80076; 85610

== ENCOUNTER → 2022-10-28 | Outpatient (CLI) | payer MEDICARE, OTHER, SELFPAY ==
[2022-10-28 11:12] LABS: International Normalized Ratio 2.1; Prothrombin Time (Protime)PT. 23.4 SECONDS (11.7-14.9)
== END | disposition home or self-care (01) ==
LOC: LAB 09:12
PROVIDERS: PCP Family Medicine; Visit Provider Internal Medicine Cardiovascular Disease
DX: I48.0 Paroxysmal atrial fibrillation (principal); Z79.01 Long term (current) use of anticoagulants
CPT/HCPCS: 36415; 85610

== ENCOUNTER → 2022-11-26 | Outpatient (CLI) | payer MEDICARE, OTHER, SELFPAY ==
[2022-11-26 11:52] LABS: International Normalized Ratio 1.9; Prothrombin Time (Protime)PT. 21.7 SECONDS (11.7-14.9)
== END | disposition home or self-care (01) ==
LOC: LAB 09:15
PROVIDERS: PCP Family Medicine; Visit Provider Internal Medicine Cardiovascular Disease
DX: I48.0 Paroxysmal atrial fibrillation (principal); Z79.01 Long term (current) use of anticoagulants
CPT/HCPCS: 36415; 85610

== ENCOUNTER → 2022-12-10 | Outpatient (CLI) | payer MEDICARE, OTHER, SELFPAY ==
[2022-12-10 12:12] LABS: International Normalized Ratio 2.2; Prothrombin Time (Protime)PT. 24.8 SECONDS (11.7-14.9)
== END | disposition home or self-care (01) ==
LOC: LAB 09:12
PROVIDERS: PCP Family Medicine; Visit Provider Internal Medicine Cardiovascular Disease
DX: I48.0 Paroxysmal atrial fibrillation (principal); Z79.01 Long term (current) use of anticoagulants
CPT/HCPCS: 36415; 85610

== ENCOUNTER → 2022-12-24 | Outpatient (CLI) | payer MEDICARE, OTHER, SELFPAY ==
[2022-12-24 10:45] LABS: International Normalized Ratio 2.1; Prothrombin Time (Protime)PT. 23.9 SECONDS (11.7-14.9)
== END | disposition home or self-care (01) ==
LOC: LAB 08:55
PROVIDERS: PCP Family Medicine; Referring Provider Internal Medicine Cardiovascular Disease; Visit Provider Internal Medicine Cardiovascular Disease
DX: I48.0 Paroxysmal atrial fibrillation (principal); Z79.01 Long term (current) use of anticoagulants
CPT/HCPCS: 36415; 85610

== ENCOUNTER → 2023-01-13 | Outpatient (CLI) | payer MEDICARE, OTHER, SELFPAY ==
[2023-01-13 12:19] LABS: International Normalized Ratio 1.8; Prothrombin Time (Protime)PT. 21.2 SECONDS (11.7-14.9)
== END | disposition home or self-care (01) ==
LOC: LAB 08:32
PROVIDERS: PCP Family Medicine; Referring Provider Internal Medicine Cardiovascular Disease; Visit Provider Internal Medicine Cardiovascular Disease
DX: I48.0 Paroxysmal atrial fibrillation (principal); Z79.01 Long term (current) use of anticoagulants
CPT/HCPCS: 36415; 85610

== ENCOUNTER 2023-09-22 11:20 | Emergency (ER) | payer MEDICARE, OTHER, SELFPAY ==
[2023-09-22 11:21] VITALS: BP 96/40; PULSE 64; RESP 16; TEMP 36.1; O2SAT 98
--- NOTE | 2023-09-22 11:46 | EDS_ITS ---
<Statement entered by Camila Guzman MD - 09/22/23 16:44> I have personally performed a face to face assessment of the patient and have reviewed the ABAD Note. Patient presents secondary to cold-like symptoms. She reportedly has had flulike symptoms for the past 1 week with cough and congestion. Daughter who cares for her was recently ill with similar. Patient blood pressure was reportedly low this morning and she felt weak so they brought her in for evaluation. Patient lying in bed no acute distress. Nontoxic-appearing. Head and neck examination unremarkable. Heart is regular rate and rhythm. Lung sounds are grossly clear. Abdomen is soft and nontender. Neuro exam is nonfocal. CBC was a white count of 3.4 with 70% neutrophils. Chemistry studies significant for BUN of 21 and a creatinine 1.06. Glucose is 132. Swab for COVID, influenza, and RSV is negative. Chest x-ray per my interpretation reveals slight congestion of the right base with no focal infiltrate. Radiology interpretation reviewed and agrees. Blood pressure was initially low on arrival at 96/40. After IV fluids pressure is 116/81. She is able to get up and ambulate without difficulty and feels much improved. She will be discharged to home. HPI History of Present Illness Chief Complaint: General Illness Narrative Narrative: Patient presented today due to flu like symptoms that started a week ago. Her daughter is with her who is her security clerk and reports that she has had nasal congestion, decreased appetite, fatigue, and a nonproductive cough. Daughter was recently sick last week. She reports that last night she took her mom's blood pressure and it was normal, this morning she noticed that it was low and patient began complaining of lightheadedness with standing, prompting her to bring her in for evaluation. She denies any fevers, chills, shortness of b reath, and chest pain. 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 CHF (congestive heart failure) Diastolic dysfunction Dizziness and giddiness Elevated liver enzymes Essential (primary) hypertension GI bleed High risk medication use HLD (hyperlipidemia) Ischemic cardiomyopathy [facility] current use of anticoagulant Monomorphic ventricular tachycardia Non-rheumatic tricuspid valve insufficiency Nonrheumatic mitral (valve) insufficiency Old anterior wall myocardial infarction Paroxysmal atrial fibrillation Secondary pulmonary arterial hypertension Shortness of breath Home Medications vit C 250 mg-vit E 90 mg-zinc 40 mg-copper 1 [id number]-qrqprc capsule See Rx Instructions PO DAILY 05/03/17 [History Last Taken Unknown] calcium carbonate 600 mg-vitamin D3 10 mcg (400 unit) capsule cap PO 10/05/22 [History Last Taken Unknown] amiodarone 200 mg tablet 100 mg (1/2 x 200 mg) PO .COMPLEX #45 tabs 02/28/23 [Rx Last Taken Unknown] furosemide 40 mg tablet 40 mg PO QDAY #90 tabs 03/28/23 [Rx Last Taken Unknown] carvedilol 25 mg tablet 25 mg PO BID #180 tabs 04/05/23 [Rx Last Taken Unknown] lisinopril 10 mg tablet 10 mg PO DAILY #90 tabs 04/05/23 [Rx Last Taken Unknown] warfarin 3 mg tablet 3 mg PO .COMPLEX #90 tabs 04/05/23 [Rx Last Taken Unknown] atorvastatin 80 mg tablet 80 mg PO QHS #90 tabs 08/01/23 [Rx Last Taken Unknown] Allergy/AdvReac Type Severity Reaction Status Date / Time Penicillins Allergy Unknown Verified 04/05/23 11:50 Sulfa (Sulfonamide Allergy Unknown Verified 04/05/23 11:50 Antibiotics) hydrocodone AdvReac Intermediate Nausea, Verified 04/05/23 11:50 hypotension Family History Father CAD (coronary artery disease) Myocardial infarction, Onset Age: 75 Brother Diabetes Mother Diabetes Breast cancer COPD (chronic obstructive pulmonary disease) Daughter Cancer Surgical History History of coronary artery stent placement (12/25/13) History of hysterectomy History of implantable cardioverter-defibrillator (ICD) placement (05/01/15) History of left heart catheterization (10/03/15) Social History Smoking Status: Never smoker alcohol intake: current substance use type: does not use caffeine: Yes what type of physical activity do you participate in: none seatbelt use: always ROS ROS ED Constitutional Constitutional ED: Denies chills or fever(s) Cardiovascular Cardiovascular: Denies chest pain or palpitations Respiratory/Chest Respiratory/Chest: Reports cough; Denies dyspnea or dyspnea on exertion Gastrointestinal Gastrointestinal: Denies abdominal pain, nausea or vomiting Genitourinary Genitourinary ED: Denies dysuria, hematuria or urinary urgency Musculoskeletal Musculoskeletal: Denies arthralgias or myalgias Integumentary Denies rash Neurologic Neurologic: Reports weakness EXAM Physical Exam Const Vital Signs: 09/22/23 11:21 09/22/23 12:23 09/22/23 13:00 Temperature 97 F L Temperature Source Temporal Pulse Rate 64 61 61 Respiratory Rate 16 16 16 Blood Pressure 96/40 L 124/56 H 99/65 Blood Pressure Mean 58 78 76 Pulse Ox 98 98 97 Oxygen Delivery Method Room Air Room Air Room Air 09/22/23 13:38 Temperature 98.5 F Temperature Source Pulse Rate 63 Respiratory Rate 18 Blood Pressure 116/81 H Blood Pressure Mean 92 Pulse Ox 98 Oxygen Delivery Method Positive well nourished, well developed and no apparent distress General Appearance ED: well developed HEENT Reports normocephalic and head/scalp atraumatic Mouth ED: Yes moist mucous membranes normal Eyes PERRL and EOMs intact bilaterally Neck full ROM and supple Chest Wall inspection of chest normal Resp normal respiratory effort and clear to auscultation bilaterally Resp Narrative: Course breath sounds to the lower lung bases bilaterally Cardio regular rate and regular rhythm GI soft to palpation, non-tender, non-distended and no masses Back/Spine normal ROM and normal to inspection Extremity normal to inspection and full ROM Neuro oriented x3, CN's II-XII intact bilaterally, moves all extremities, no focal motor deficits and no sensory deficits noted Sensorium / Orientation: awake and alert Psych mental status grossly normal and thought process normal Skin no rashes or lesions noted and no wounds MDM MDM MDM Narrative Medical decision making narrative: Patient presenting today with flulike symptoms she has had over the past week. She is well appearing and in no acute distress. Daughter has concerns that she could be dehydrated due to low blood pressure. Labs will be obtained, she will be given IV fluids, chest x-ray be obtained to rule out pneumonia and other ca rdiopulmonary abnormality. COVID and influenza swabs will be obtained. CBC shows a WBC of 3.4, H&H 11.2 and 34.3, platelet count 97 which is consistent with previous labs, potassium 3.1, creatinine 1.06, BUN 21, kidney function appears to be at baseline. She was given potassium replacement. After a liter of IV fluids, her blood pressure did improved to 116/81. She was ambulated and did well. Chest x-ray negative for any acute findings aside from a slight pleural effusion on the right side. I do feel her examination is consistent with a viral illness, especially since her daughter has been sick with similar symptoms. Supportive care measures discussed, encourage follow-up with the PCP. Return instructions discussed and she will be discharged in stable condition. Lab Data Attestation: I reviewed the patient's lab results. Labs: Laboratory Results - last 24 hr 09/22/23 12:08 WBC 3.4 L RBC 3.65 L Hgb 11.2 L Hct 34.3 L MCV 94.0 MCH 30.7 MCHC 32.7 RDW Std Deviation 46.3 H RDW Coeff of Chiqui 13.4 Plt Count 97 L MPV 10.8 Immature Gran % (Auto) 0.600 Neut % (Auto) 74.8 H Lymph % (Auto) 12.0 L [place]eson % (Auto) 12.0 H Eos % (Auto) 0.3 Baso % (Auto) 0.3 Absolute Neuts (auto) 2.6 Absolute Lymphs (auto) 0.41 L Nucleated RBC % 0 Sodium 138 Potassium 3.1 L Chloride 101 Carbon Dioxide 31.0 Anion Gap 6 BUN 21 H Creatinine 1.06 H Est GFR (MDRD) Af Amer 63 Est GFR (MDRD) Non-Af 52 L BUN/Creatinine Ratio 19.8 Glucose 132 H Calcium 8.4 L Radiography X-Ray: Read by ED Physician Diagnostic Testing: Clinical Impression(s) from Imaging Studies Chest X-Ray 09/22/23 12:18 IMPRESSION: Mild enlargement of the cardiac silhouette. Blunting of the right costophrenic angle could be due to small pleural effusion or pleural thickening. Electronically Signed: Zhang Phipps MD at 12:41 EDT , Discharge Plan Triage Chief Complaint: General Illness ED Midlevel Provider: Priscilla Singh ED Provider: Guzman,Camila Dx/Rx/DC Orders Clinical Impression: Light headed, Viral illness, Hypotension Instructions: ED Low Blood Pressure, All Causes, ED Viral Syndrome (Adult) Prescriptions: No Action calcium carbonate-vitamin D3 600 mg-10 mcg (400 unit) capsule PO lisinopril 10 mg tablet 10 mg PO DAILY Qty: 90 3RF carvedilol 25 mg tablet 25 mg PO BID Qty: 180 3RF warfarin 3 mg tablet 3 mg PO .COMPLEX Qty: 90 3RF Protocol: Dose Management Condition: Tuesday Dose/Route: 1.5 mg Instruction: 0.5 x 3 mg tablets Condition: Tuesday Dose/Route: 1.5 mg Instruction: 0.5 x 3 mg tablets Condition: Tuesday Dose/Route: 1.5 mg Instruction: 0.5 x 3 mg tablets Condition: Tuesday Dose/Route: 3 mg Instruction: 1 x 3 mg tablet Condition: Dose/Route: 3 mg Instruction: 1 x 3 mg tablet Condition: Tuesday Dose/Route: 1.5 mg Instruction: 0.5 x 3 mg tablets Condition: Tuesday Dose/Route: 1.5 mg Instruction: 0.5 x 3 mg tablets Protocol Text: Adjustment Start Date: Tuesday09/21/23 INR Value: 1.8 INR Date: 09/21/23 Recheck Date: 09/28/23 Rx Instructions: 3 mg orally daily except 1/2 tablet (1.5 mg) on Sundays; or as directed; vit C,L-Oi-gtswo-lutein-zeaxan 1 EACH capsule See Rx Instructions PO DAILY Patient Comments: 2 tablets PO DAILY Rx Instructions: 2 tablets PO DAILY amiodarone 200 mg tablet 100 mg PO .COMPLEX Qty: 45 3RF Rx Instructions: 100 mg PO 0.5 tablet by mouth daily furosemide 40 mg tablet 40 mg PO QDAY Qty: 90 4RF atorvastatin 80 mg tablet 80 mg PO QHS Qty: 90 4RF Primary Care Provider: Olivier Singh Referrals: Olivier Singh MD [Primary Care Provider] - 3-5 Days Activity Restrictions/Additional Instructions: Follow-up with your PCP and return for any worsening of your symptoms. Disposition Disposition: Home, Self Care Discharge Date/Time: 09/22/23 13:39
[2023-09-22] MEDS: 0.9% Normal Saline (1000mL) 1,000 ML 999 ML IV (12:02)
[2023-09-22 12:17] LABS: Absolute Lymphocyte Count 0.41 X10^3/uL (0.83-4.51); Absolute Neutrophil Count 2.6 X10^3/uL (2.0-7.7); Basophil# 0.01 X10^3/uL; Basophil% 0.3 % (0-1); Eosinophil# 0.01 X10^3/uL; Eosinophils% 0.3 % (0-5); Hematocrit 34.3 % (37-47); Hemoglobin 11.2 g/dL (12.0-15.0); Lymphocyte # 0.41 X10^3/ul (0.83-4.51); Mean Corp Hgb Conc 32.7 g/dL (32-36); Mean Corpuscular Hgb 30.7 pg (27.0-32.0); Mean Platelet Vol. 10.8 fl (6.2-12.0); Monocyte# 0.41 X10^3/uL; NRBC Flagged by Analyzer 0 % (0-5); Neutrophil # 2.57 X10^3/uL (2.7-7.7); Neutrophil % 74.8 % (47-70); POSITIVE COUNT YES; POSITIVE DIFFERENTIAL YES; Platelet Count 97 K/mm3 (150-450); RBC Distribution Width CV 13.4 % (11.6-14.6); RBC Distribution Width SD 46.3 fl (35.1-43.9); Red Blood Count 3.65 M/mm3 (4.2-5.4); White Blood Count 3.4 K/mm3 (4.4-11.0)
--- NOTE | 2023-09-22 12:18 | RAD_ITS ---
INDICATION: cough EXAMINATION/TECHNIQUE: X-RAY - XR Chest 2 Views COMPARISON: No relevant prior comparison study available FINDINGS: LINES/DEVICES: Left-sided dual-chamber cardiac pacer device in place. LUNGS: No focal consolidation is seen. Blunting of the right costophrenic angle. MEDIASTINUM AND CARDIOVASCULAR STRUCTURES: Mild enlargement of the cardiac silhouette. BONES AND SOFT TISSUES: Degenerative changes of the visualized left shoulder. RAD/Chest PA and Lateral IMPRESSION: Mild enlargement of the cardiac silhouette. Blunting of the right costophrenic angle could be due to small pleural effusion or pleural thickening. Electronically Signed: Zhang Phipps MD at 12:41 EDT ,
[2023-09-22 12:23] VITALS: BP 124/56; PULSE 61; RESP 16; O2SAT 98
[2023-09-22 12:28] LABS: Anion Gap 6 (5-15); BUN 21 mg/dL (7-18); BUN/Creat Ratio 19.8 RATIO (10-20); Calcium,Total 8.4 mg/dL (8.5-10.1); Chloride 101 mmol/L (98-107); Creatinine, Serum 1.06 mg/dL (0.55-1.02); EST Glomerular Filtration Rate 52 mL/min (>60); Est Glom Filt Rate - Afr Amer 63 mL/min (>60); Glucose 132 mg/dL (74-106); Potassium 3.1 mmol/L (3.5-5.1); Sodium Level 138 mmol/L (136-145)
[2023-09-22] MEDS: Potassium Chloride Oral Tablet 20 MEQ 40 MEQ PO (12:57)
[2023-09-22 13:00] VITALS: BP 99/65; PULSE 61; RESP 16; O2SAT 97
--- NOTE | 2023-09-22 13:26 | NURSING ---
pt ambulated down the hallway and back with no assistance. Pt denies dizziness.
[2023-09-22 13:38] VITALS: BP 116/81; PULSE 63; RESP 18; TEMP 36.9; O2SAT 98
== END 2023-09-22 13:39 | disposition home or self-care (01) ==
PROVIDERS: Physician Assistant; Emergency Provider Emergency Medicine; PCP Family Medicine; Visit Provider Emergency Medicine
DX: R42 Dizziness and giddiness (principal); I11.0 Hypertensive heart disease with heart failure; I50.42 Chronic combined systolic (congestive) and diastolic (congestive) heart failure; B34.9 Viral infection, unspecified; I95.9 Hypotension, unspecified; I25.10 Atherosclerotic heart disease of native coronary artery without angina pectoris; E78.5 Hyperlipidemia, unspecified; R05.8 Other specified cough; R09.81 Nasal congestion
CPT/HCPCS: 71046; 80048; 85025; 87631; 96360; 96361; 99283; J7030